=== PATIENT | male | born 1975 | race Caucasian/White ===

== ENCOUNTER → 2020-12-25 14:26 | Outpatient (REF) | payer OTHER, SELFPAY ==
--- NOTE | 2020-12-25 15:00 | CA_ITS ---
Transthoracic Echocardiogram Patient (Last, First, Middle): Dima Monsalve, Gender: Male Date of : 1975 Age: 45 Procedure Date: 12/25/2020 Procedure Type: Transthoracic Echocardiogram Location: OP Height: 180.34 cm Weight: 102.06 kg BSA: 2.22 m2 Heart Rate: bpm BP: 186 / 97 mmHg Die Cast Engineer: STANFORD Delaney MD: Saúl Hoff MD Warning Coordination Meteorologist: Richie Jameson MD Symptoms: I20.8 STABLE ANGINA PECTORIS I25.10 ASCD Z95.5 STENTED COR A Study Quality: Good ECG Rhythm: Sinus Conclusions: - 1. Normal LV systolic function with grade 1 diastolic dysfunction with basal inferior and inferoseptal wall motion abnormality 2. Normal cardiac valvular Doppler 3. No pericardial effusion Findings Left Ventricle Normal left ventricular size, thickness, and systolic function. The visually estimated ejection fraction is between 60-65%. Spectral Doppler is indicative of an impaired relaxation filling pattern. E/E prime ratio is <8, consistent with normal filling pressures. Evidence suggests grade I (mild) diastolic dysfunction. Wall Motion Rest Echo Findings The basal inferoseptal segment is hypokinetic. The basal inferior segment is akinetic. All other scored wall segments showed normal motion. Right Ventricle Normal right ventricular cavity size and systolic function. Atria Both atria are normal in size. There is lipomatous hypertrophy of the interatrial septum. There is no evidence of interatrial shunt. Aortic Valve Normal aortic valve structure and function. There is no aortic valve stenosis. There is no aortic valve regurgitation. Mitral Valve Normal mitral valve structure and function. There is no mitral valve regurgitation. There is no mitral valve stenosis. Pulmonic Valve The pulmonic valve was not well visualized. Tricuspid Valve Normal tricuspid valve structure. There is trace tricuspid valve regurgitation. The right ventricular systolic pressure is not calculated. Great Vessels All visible segments of the aorta are normal in size. The pulmonary artery was not well visualized. Venous The inferior vena cava is normal in size and collapses greater than 50% with inspiration. Pericardium/Pleural There is no evidence of pericardial effusion. Prior Study Comparison No prior study available for comparison. Measurements M-Mode Liner Measurements Normals - Women/Men AOV Cusps: 2.30 1.5-2.6 cm/m2 2D Linear Measurements IVSd: 0.93 0.6-0.9/0.6-1.0 cm LVIDd: 5.05 3.9-5.3/4.2-5.9 cm LVIDd Index: 2.27 2.4-3.2/2.2-3.1 cm/m2 LVIDs: 4.06 2.0-3.6 cm LVPWd: 1.10 0.7-1.1 cm Ao Root: 3.30 2.1-3.5 cm LA Diam: 4.10 2.7-3.8/3.0-4.0 cm LAIDs Index: 1.85 1.5-2.3 cm/m2 LV Mass: 234.84 67-162/88-224 g LV Mass Index: 105.78 43-95/49-115 g/m2 LVOT Diam: 2.20 3.0+(-)1.3 cm 2D Systolic Function EF 4C: 60.70 >55% EF 2C: 66.20 >55% EF BiP: 63.70 >55% Mitral Valve MV Pk E: 0.67 MV PK A: 0.78 MV Decel Time: 369.00 E/A: 0.90 E'Lateral: 13.20 E'Medial: 7.62 E/E' Med: 8.80 E/E' Lat: 5.10 PHT: 108.00 MVA PHT: 2.04 Decel [place]: 1.82 Aortic Valve AoV Pk Franklyn: 1.57 AoV Pk Grad: 10.00 LVOT LVOT Pk Franklyn: 1.02 LVOT Mn Franklyn: 0.76 LVOT VTI: 0.22 LVOT Pk Grad: 4.00 LVOT Mn Grad: 3.00 LVOT Diam: 2.20 LVOT Area: 3.80 Diastolic Function MV Pk E: 0.67 MV Pk A: 0.78 E/A: 0.90 E'Medial: 7.62 E/E' Med: 8.80 E' Laterial: 13.20 E/E' Lat: 5.10 Tricuspid Valve RA Press: 3.00 Great Vessels Aorta Ao Root-2D: 3.30 2.0-3.7 cm Ao Asc: 3.10 2.1-3.4 cm Ao Arch: 2.90 Pulmonary Valve PV Pk Franklyn: 1.10 Peak PV Grad: 5.00 Updated in Other Vendor System with Status of Final Richie Jameson MD electronically signed on 12/26/2020 4:57:07 PM with status of Final
== END ==
LOC: HO.CARD 14:26
PROVIDERS: Visit Provider Internal Medicine
DX: I25.119 Atherosclerotic heart disease of native coronary artery with unspecified angina pectoris (principal); Z95.5 Presence of coronary angioplasty implant and graft
CPT/HCPCS: 93306

== ENCOUNTER → 2021-01-23 14:49 | Outpatient (BNVA) | payer OTHER, SELFPAY | PROVIDERS: PCP Internal Medicine; Visit Provider Internal Medicine | DX: R07.2 Precordial pain (principal); I25.10 Atherosclerotic heart disease of native coronary artery without angina pectoris; E11.8 Type 2 diabetes mellitus with unspecified complications; I10 Essential (primary) hypertension; E78.5 Hyperlipidemia, unspecified; Z95.5 Presence of coronary angioplasty implant and graft | CPT/HCPCS: 93005; 99212 ==

== ENCOUNTER → 2021-01-24 07:38 | Outpatient (REF) | payer OTHER, SELFPAY ==
--- NOTE | ~2021-01-24 | NM_ITS ---
Lexiscan Myocardial perfusion study Indication: Exertional angina, assess for ischemia Technique: The patient was brought in for a Lexiscan perfusion study on 01/24/2021 and was injected 0.4 mg of Lexiscan intravenously. Within a minute of this injection 30 mCi of sestamibi was given intravenously. Images were obtained using the SPECT gamma camera interlaced with the gating device. Images were obtained in supine position. Resting perfusion study was performed on 01/25/2021. Patient was administered 30 mCi of sestamibi intravenously at rest. Images were then obtained in supine position. Total DLP 59mGy-cm. Images were processed with the software and compared side to side in short axis, horizontal long axis and vertical long axis views. Findings: Raw acquisition was reviewed. The stress perfusion study showed diminished tracer uptake along the inferior wall. With CT attenuation correction, there seems to be improvement, hence suggesting diaphragmatic attenuation artifact. The gated study shows normal LV systolic function with calculated LVEF of 61%. LV cavity is normal in size. The gated study shows normal wall thickening and contraction of segments. Resting study shows diminished tracer uptake along the inferior wall that improves with CT attenuation correction but there is also some bowel uptake superimposed on it. Gating at rest reveals normal wall motion with ejection fraction at 64%. The findings are consistent with inferior wall defect with some fixed and reversible components but improving with CT attenuation correction. NM/NM cardiolite stress test Impression: 1. Myocardial perfusion imaging study shows inferior wall defect that has reversible and fixed components, but improving significantly with CT attenuation correction. Appears to be from diaphragmatic attenuation but based on clinical history/coronary anatomy, may consider further workup. 2. Gated LVEF is 61% during stress and 64% during rest. 3. Transient ischemic dilatation not present. Component of the test reported separately.
--- NOTE | 2021-01-24 07:49 | CA_ITS ---
Acquisition Time: 2021-01-24 07:52:54 Total Exercise Time: 00:02:00 Test Indications: CP Medications: SEE CHART Protocol: LEXISCAN Max HR: 084 BPM 48% of Pred: 172 BPM Max BP: 142/092 mmHG Max Work Load: 1.6 METS Pharmacological stress test using Lexiscan while walking on treadmill for 2 min. C/o chest pressure 3/10 2 min 30 sec into recovery. SX reversed with Aminophyline 75 mg IV. EKG with no arrhythmias, non-dfiagnostic for ischemia. Nuclear images to follow. Normotensive response to test. Test reviewed with Dr. Hoff. Referred By: Saúl Hoff Overread By: Lynne Clark NP
== END ==
LOC: HO.CARD 07:38
PROVIDERS: PCP Internal Medicine; Visit Provider Internal Medicine
DX: R07.2 Precordial pain (principal); I25.10 Atherosclerotic heart disease of native coronary artery without angina pectoris; Z95.5 Presence of coronary angioplasty implant and graft
CPT/HCPCS: 78452; 93016; 93017; 93018; A9500; J0280; J2785

== ENCOUNTER 2021-01-31 16:02 | Outpatient (REF) | payer OTHER, SELFPAY ==
[2021-01-31 16:28] LABS: Hematocrit 43.2 % (42-52); Hemoglobin 15.1 g/dl (14.0-18.0); Mean Corpuscular Hemoglobin 32.7 pg (27.0-33.0); Mean Corpuscular Volume 93.5 fL (80-98); Mean Platelet Volume 9.9 fL (9.4-12.4); Platelet Count 249 X10*3/uL (160-400); Red Blood Count 4.62 X10*6/uL (4.60-5.80); Red Cell Distribution Width 12.9 % (11.0-16.0); White Blood Count 8.9 X10*3/uL (4.8-10.8)
[2021-01-31 16:52] LABS: INTERNATIONAL NORM RATIO 0.9 (0.9-1.1); Prothrombin Time 10.8 SEC (10.8-13.0)
[2021-01-31 16:53] LABS: Anion Gap 14 (12-20); Blood Urea Nitrogen 18 mg/dL (9-16); Calcium 10.4 mg/dL (8.4-10.2); Carbon Dioxide 27 mmol/L (22-29); Chloride 104 mmol/L (96-108); Estimated Glomerular Filt Rate > 60; Glucose Random 177 mg/dL (60-115); Potassium 4.3 mmol/L (3.3-5.1); Sodium 141 mmol/L (135-145)
== END 2021-01-31 16:03 | disposition home or self-care (01) ==
LOC: HO.LAB 16:02
PROVIDERS: PCP Internal Medicine; Visit Provider Internal Medicine
DX: R07.2 Precordial pain (principal)
CPT/HCPCS: 36415; 80048; 85027; 85610

== ENCOUNTER → 2021-02-13 11:55 | Outpatient (BNVA) | payer OTHER, SELFPAY | PROVIDERS: PCP Internal Medicine; Referring Provider Internal Medicine; Visit Provider Internal Medicine | DX: I25.10 Atherosclerotic heart disease of native coronary artery without angina pectoris (principal); I10 Essential (primary) hypertension; E11.8 Type 2 diabetes mellitus with unspecified complications; E78.5 Hyperlipidemia, unspecified; Z95.5 Presence of coronary angioplasty implant and graft | CPT/HCPCS: 99212 ==

== ENCOUNTER 2021-03-27 13:43 | Outpatient (REF) | payer OTHER, SELFPAY ==
--- NOTE | ~2021-03-27 | XR_ITS ---
EXAMINATION: XR knee RT 2V, XR knee LT 2V, XR knee standing BI CLINICAL INFORMATION: Bilateral knee pain. COMPARISON: None. TECHNIQUE: Standing AP views of both knees were obtained with lateral and sunrise views of each knee. FINDINGS: RIGHT KNEE: No bony abnormality is demonstrated. Joint spaces are maintained. Patellar alignment is normal. No joint effusion is evident. LEFT KNEE: Mild degenerative changes are present in the medial compartment with mild joint space narrowing and small marginal osteophytosis. Several small calcific densities overlie the posterior joint space concerning for intra-articular loose bodies. Donor site is not evident. Mild degenerative changes are present in the patellofemoral compartment. Patellar alignment is normal. XR/XR knee RT 2V IMPRESSION: 1. Unremarkable right knee. 2. Mild degenerative changes of the left knee in the medial and patellofemoral compartments. Calcific densities overlying the posterior joint space of the left knee concerning for intra-articular loose bodies. This could be further assessed with MR.
--- NOTE | ~2021-03-27 | XR_ITS ---
EXAMINATION: XR knee RT 2V, XR knee LT 2V, XR knee standing BI CLINICAL INFORMATION: Bilateral knee pain. COMPARISON: None. TECHNIQUE: Standing AP views of both knees were obtained with lateral and sunrise views of each knee. FINDINGS: RIGHT KNEE: No bony abnormality is demonstrated. Joint spaces are maintained. Patellar alignment is normal. No joint effusion is evident. LEFT KNEE: Mild degenerative changes are present in the medial compartment with mild joint space narrowing and small marginal osteophytosis. Several small calcific densities overlie the posterior joint space concerning for intra-articular loose bodies. Donor site is not evident. Mild degenerative changes are present in the patellofemoral compartment. Patellar alignment is normal. XR/XR knee standing BI IMPRESSION: 1. Unremarkable right knee. 2. Mild degenerative changes of the left knee in the medial and patellofemoral compartments. Calcific densities overlying the posterior joint space of the left knee concerning for intra-articular loose bodies. This could be further assessed with MR.
--- NOTE | ~2021-03-27 | XR_ITS ---
EXAMINATION: XR knee RT 2V, XR knee LT 2V, XR knee standing BI CLINICAL INFORMATION: Bilateral knee pain. COMPARISON: None. TECHNIQUE: Standing AP views of both knees were obtained with lateral and sunrise views of each knee. FINDINGS: RIGHT KNEE: No bony abnormality is demonstrated. Joint spaces are maintained. Patellar alignment is normal. No joint effusion is evident. LEFT KNEE: Mild degenerative changes are present in the medial compartment with mild joint space narrowing and small marginal osteophytosis. Several small calcific densities overlie the posterior joint space concerning for intra-articular loose bodies. Donor site is not evident. Mild degenerative changes are present in the patellofemoral compartment. Patellar alignment is normal. XR/XR knee LT 2V IMPRESSION: 1. Unremarkable right knee. 2. Mild degenerative changes of the left knee in the medial and patellofemoral compartments. Calcific densities overlying the posterior joint space of the left knee concerning for intra-articular loose bodies. This could be further assessed with MR.
== END 2021-03-27 13:44 | disposition home or self-care (01) ==
LOC: HO.XRAY 13:43
PROVIDERS: PCP Internal Medicine; Visit Provider Orthopaedic Surgery
DX: M25.561 Pain in right knee (principal); M25.562 Pain in left knee
CPT/HCPCS: 20610; 73560; 73565; 99202; J1040

== ENCOUNTER → 2021-07-16 14:29 | Outpatient (BNVA) | payer OTHER, SELFPAY | PROVIDERS: PCP Internal Medicine; Referring Provider Internal Medicine; Visit Provider Internal Medicine | DX: I25.10 Atherosclerotic heart disease of native coronary artery without angina pectoris (principal); E11.9 Type 2 diabetes mellitus without complications; I10 Essential (primary) hypertension; E78.5 Hyperlipidemia, unspecified; E78.00 Pure hypercholesterolemia, unspecified; E66.9 Obesity, unspecified; Z68.31 Body mass index [BMI] 31.0-31.9, adult; Z87.891 Personal history of nicotine dependence; Z95.5 Presence of coronary angioplasty implant and graft; Z98.890 Other specified postprocedural states; Z79.84 Long term (current) use of oral hypoglycemic drugs; Z79.899 Other long term (current) drug therapy | CPT/HCPCS: 99212 ==

== ENCOUNTER 2021-10-14 10:54 | Outpatient (REF) | payer OTHER, SELFPAY ==
[2021-10-14 11:09] LABS: MANUAL DIFF FLAG NO
[2021-10-14 11:58] LABS: Appearance Urine CLEAR; Color Urine YELLOW; Glucose Urine UA NEG (NEG); Leukocyte Esterase Urine NEG (NEG); Nitrite Urine NEG (NEG); PH 5.5 (5.0-8.0); Specific Gravity - Urine >= 1.030 (1.005-1.025); Urine Blood NEG (NEG); Urine Ketones NEG (NEG); Urine Protein NEG (NEG-TRACE)
[2021-10-14 11:58] LABS: Basophils Percent Auto 0.3 % (0-2); Eosinophils Absolute Auto 0.1 X10*3/uL (0.0-0.4); Eosinophils Percent Auto 1.6 % (0-4); Hematocrit 44.9 % (42.0-52.0); Imm Gran Abs Auto 0.02 X10*3/uL (0.00-0.03); Imm Gran Pct Auto 0.3 % (0.0-0.4); Lymphocytes Absolute Auto 1.5 X10*3/uL (1.2-4.9); Lymphocytes Percent Auto 24.4 % (20-40); Mean Corpuscular HGB Conc 33.4 g/dl (31.0-36.0); Mean Corpuscular Volume 95.7 fL (80.0-98.0); Mean Platelet Volume 10.3 fL (9.4-12.4); Monocytes Absolute Auto 0.7 X10*3/uL (0.1-1.2); Monocytes Percent Auto 12.1 % (2-11); Neutrophils Absolute Auto 3.7 x10*3/uL (2.0-8.3); Neutrophils Percent Auto 61.3 % (45-73); Platelet Count 208 X10*3/uL (160-400); Red Blood Count 4.69 X10*6/uL (4.60-5.80); Red Cell Distribution Width 12.7 % (11.0-16.0); White Blood Count 6.1 X10*3/uL (4.8-10.8)
[2021-10-14 12:05] LABS: Estimated Average Glucose 194 mg/dL; Hemoglobin A1c % 8.4 %
[2021-10-14 12:17] LABS: Alanine Aminotransferase 30 U/L (0-40); Albumin Level 4.4 g/dL (3.5-5.0); Alkaline Phosphatase 85 U/L (39-117); Anion Gap 11 (12-20); Aspartate Amino Transferase 23 U/L (5-37); Bilirubin Total 0.6 mg/dL (0.0-1.0); Blood Urea Nitrogen 19 mg/dL (9-16); Calcium 10.2 mg/dL (8.4-10.2); Carbon Dioxide 26 mmol/L (22-29); Chloride 109 mmol/L (96-108); Cholesterol 159 mg/dL; Estimated Glomerular Filt Rate > 60; Glucose Fasting 148 mg/dL (60-99); HDL Cholesterol 29 mg/dL; Potassium 5.1 mmol/L (3.3-5.1); Sodium 141 mmol/L (135-145); Total Protein 7.3 g/dL (6.5-8.0); Triglycerides 401 mg/dL
[2021-10-14 12:20] LABS: Creatinine Urine 134.76 mg/dL; Microalbum/Creatinine Ratio Ur 34.1 ug/mg cr
[2021-10-14 12:40] LABS: TSH reflex Free T4 1.05 uIU/mL (0.32-4.0)
== END 2021-10-14 10:55 | disposition home or self-care (01) ==
LOC: HO.LAB 10:54
PROVIDERS: PCP Internal Medicine; Visit Provider Internal Medicine
DX: E11.8 Type 2 diabetes mellitus with unspecified complications (principal); E78.00 Pure hypercholesterolemia, unspecified; I10 Essential (primary) hypertension; I25.10 Atherosclerotic heart disease of native coronary artery without angina pectoris; E66.9 Obesity, unspecified
CPT/HCPCS: 36415; 80053; 80061; 81003; 82043; 83036; 84443; 85025

== ENCOUNTER → 2021-11-26 11:16 | Outpatient (BNVA) | payer OTHER, SELFPAY | PROVIDERS: PCP Internal Medicine; Referring Provider Internal Medicine; Visit Provider Internal Medicine | DX: I25.10 Atherosclerotic heart disease of native coronary artery without angina pectoris (principal); I10 Essential (primary) hypertension; E78.5 Hyperlipidemia, unspecified; E11.8 Type 2 diabetes mellitus with unspecified complications; Z79.899 Other long term (current) drug therapy; Z95.5 Presence of coronary angioplasty implant and graft | CPT/HCPCS: 99212 ==

== ENCOUNTER 2023-05-06 09:07 | Outpatient (AMB) | payer OTHER, SELFPAY ==
--- NOTE | 2023-05-06 09:11 | A.OFFVIS_ITS ---
Intake Vital Signs 05/06/23 09:12 Height 5 ft 11 in Weight 220 lb 7.396 oz BMI 30.7 BP 110/74 Blood Pressure Location Lt brachial Position Sitting Pulse 60 Intake Visit Reasons: overdue follow up Intake Note: overdue follow up Program Facilitator Required: No Accompanied by: Self / Same As Patient Allergies No Known Allergies [No Known Allergies*] Allergy (Verified 05/06/23 09:14) Medication List - Last Reconciled 05/06/23 by Saúl Hoff MD aspirin 81 mg PO DAILY atorvastatin 80 mg PO DAILY clonidine HCl 0.1 mg PO BID PRN clopidogrel 75 mg PO DAILY isosorbide mononitrate ER 120 mg PO QAM lisinopril 40 mg PO DAILY metformin 1,000 mg PO BID metoprolol tartrate 100 mg PO BID nitroglycerin 0.4 mg sublingual Q5M PRN 30 days MDD max 3 doses per episode sitagliptin phosphate (Januvia) 100 mg PO DAILY 30 days tizanidine 4 mg PO TID PRN HPI HPI Comments History of Present Illness Details Dima is here for follow-up regarding coronary artery disease. Various risk factors including diabetes, hypertension, dyslipidemia. We have not seen him in more than a year. However, he states that he is actually doing pretty good. His long-acting nitrates are working fine and and he has essentially been free of angina. Otherwise, getting along okay. [facility] Medical History Atherosclerotic cardiovascular disease Bilateral primary osteoarthritis of knee Essential hypertension Obesity (BMI 30-39.9) Other and unspecified hyperlipidemia Pure hypercholesterolemia Type 2 diabetes mellitus with unspecified complications Surgical History History of cardiac catheterization (~02/15/20) History of heart artery stent Stented coronary artery Family History Father No problems noted. Mother No problems noted. Social History Housing: Apartment Alcohol intake: former Year quit: 2020 Patient Tobacco Use Status: Former Tobacco user Quit Date: 2020 Tobacco use type: Cigarette Years Smoked: 30+/- Second Hand Smoke Exposure: Yes Current occupational status: employed Current occupation: [employer] Work[employer] Cognitive needs: No Hearing needs: No Vision needs: No Review of Systems Const Denies weakness ENT Denies dizziness Card Denies chest pain, Denies chest pain with activity, Denies syncope, Denies rapid heart rate, Denies pedal edema, Denies edema, Denies leg edema, Denies lightheadedness, Denies palpitations, Denies dyspnea, Denies dyspnea on exertion and Denies orthopnea Resp Denies cough, Denies dyspnea and Denies dyspnea on exertion GI Denies hematochezia and Denies change in stool character Musc Denies abnormal gait, Denies muscle cramps, Denies muscle weakness, Denies numbness, Denies radiating pain into limb and Denies tingling Neuro Denies abnormal gait, Denies dizziness, Denies syncope, Denies numbness, Denies tingling and Denies weakness Endo Denies palpitations Physical Exam Vital Signs: Last Vital Signs Pulse 60 05/06/23 09:12 BP 110/74 05/06/23 09:12 BMI result Body Mass Index 30.7 Const General: comfortable and no acute distress Orientation/consciousness: patient oriented x3 HEENT Other: Unremarkable Head: Yes normal to inspection Neck Neck: Yes normal visual inspection Chest Chest palpation & inspection: normal inspection of the chest Resp Auscultation: clear to auscultation bilaterally Cardio Palpation: normal PMI Heart sounds: S1 normal heart sound present, S2 normal heart sound present, no gallops, Murmur heart sound present systolic I/ and at the right sternal border and no rubs GI Palpation (GI): Soft to palpation Back/Spine/Pelvis Other: unremarkable Skin General skin exam: no rashes or lesions noted Neuro General: patient oriented x3 Extrem General: Yes normal to inspection Psych Mental Status: mental status grossly normal Assessment & Plan Assessment & Plan (1) Atherosclerotic cardiovascular disease: Code(s): I25.10 - Atherosclerotic heart disease of [place] coronary artery without angina pectoris (2) Stented coronary artery: Code(s): Z95.5 - Presence of coronary angioplasty implant and graft (3) Type 2 diabetes mellitus with unspecified complications: Code(s): E11.8 - Type 2 diabetes mellitus with unspecified complications (4) Essential hypertension: Code(s): I10 - Essential (primary) hypertension (5) Other and unspecified hyperlipidemia: Code(s): E78.5 - Hyperlipidemia, unspecified Plan Coronary anatomy- multiple coronary interventions at different times starting in 2009. Last cardiac catheterization was in 2020. He had moderate InStent restenosis in the OM3 and ostial 70% OM2; mid to distal LAD-50% but IFR assessment for all of these were not significant. Overall, seems to be free of angina. Continue high dose of beta-blockers and he is also on high dose of long-acting nitrates. He has had headaches in the past but nothing recently. It seems that we did start him on Ranexa last time but does not seem to be taking it as he states he is already feeling fine without it. Otherwise, okay to keep him on dual antiplatelet therapy long-term considering the extent of CAD. Continue high-dose statins. Last LDL was 70 mg/dL. Triglycerides were also high. There is already a request for repeat lipids. Advised to do that. With regard to diabetes, he is on metformin, Januvia. Last available hemoglobin A1c is quite high at 9.9%. That needs to be significantly lower. Otherwise, he will call us with ongoing concerns. Coding Level of Care Code Est Pt Level 4 (71987) Diagnoses Atherosclerotic cardiovascular disease I25.10 Stented coronary artery Z95.5 Type 2 diabetes mellitus with unspecified complications E11.8 Essential hypertension I10 Other and unspecified hyperlipidemia E78.5
[2023-05-06 09:12] VITALS: BP 110/74; PULSE 60; BMI 30.7
== END 2023-05-06 09:28 | disposition home or self-care (01) ==
PROVIDERS: PCP Internal Medicine; Visit Provider Internal Medicine
DX: I25.10 Atherosclerotic heart disease of native coronary artery without angina pectoris (principal); Z95.5 Presence of coronary angioplasty implant and graft; E11.8 Type 2 diabetes mellitus with unspecified complications; I10 Essential (primary) hypertension; E78.5 Hyperlipidemia, unspecified
CPT/HCPCS: 99214

== ENCOUNTER → 2023-05-06 09:07 | Outpatient (BNVA) | payer OTHER, SELFPAY | PROVIDERS: PCP Internal Medicine; Visit Provider Internal Medicine | DX: I25.10 Atherosclerotic heart disease of native coronary artery without angina pectoris (principal); I10 Essential (primary) hypertension; E11.8 Type 2 diabetes mellitus with unspecified complications; E78.5 Hyperlipidemia, unspecified; Z95.5 Presence of coronary angioplasty implant and graft | CPT/HCPCS: 99212 ==

== ENCOUNTER 2023-05-13 15:43 | Outpatient (AMB) | payer OTHER, SELFPAY ==
--- NOTE | 2023-05-13 15:46 | A.OFFPC_ITS ---
Vital Signs 05/13/23 15:47 Height 5 ft 11 in Weight 221 lb 4 oz BMI 30.9 BP 100/60 Blood Pressure Location Lt brachial Position Sitting Pulse 76 Pulse Source Pulse Oximeter Pulse Oximetry (%) 93 Oxygen Delivery Method Room Air Intake Visit Reasons: Physical exam Intake Note: Patient is here today for a physical. 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 Repair Person Required: No Toxicology Teacher: Not Required per policy Accompanied by: Self / Same As Patient Allergies No Known Allergies [No Known Allergies*] Allergy (Verified 05/13/23 16:01) Medication List - Last Reconciled 05/13/23 by Alin Sandy MD aspirin 81 mg PO DAILY atorvastatin 80 mg PO DAILY clonidine HCl 0.1 mg PO BID PRN clopidogrel 75 mg PO DAILY isosorbide mononitrate ER 120 mg PO QAM lisinopril 40 mg PO DAILY metformin 1,000 mg PO BID metoprolol tartrate 100 mg PO BID nitroglycerin 0.4 mg sublingual Q5M PRN 30 days MDD max 3 doses per episode sitagliptin phosphate (Januvia) 100 mg PO DAILY 30 days tizanidine 4 mg PO TID PRN Tobacco use date assessed: 05/13/23 Dental Screening Dental Screen Date: 05/13/23 Did you have a dental visit in the last 12 months?: No Did you have a dental problem in the last 6 months where you did not have access to dental care?: No Was dental information given to patient?: No HPI Physical exam HPI Details Patient comes in today for his annual physical examination - was last seen for follow up almost a year ago on 06/10/2022 States that he currently feels okay He denies any headaches or dizziness Denies any chest pains, no SOB No nausea/vomiting, no abdominal pain but states that he has been feeling bloated a lot lately and his stomach sometimes feel uncomfortable, especially in the morning Notes that he has been burping a lot and that gas that he gets up is often foul- smelling No change in bowel habits noted - is not constipated and states that he moves his bowels regularly with no issues Denies any acute urinary symptoms Needs his Nitroglycerin tablets Rx refilled; states that he rarely Has no follow up labs done recently; labs were last done in October 2021 States that he has never had a screening colonoscopy done in the past and prefers to have Cologuard testing done at this time if appropriate [facility] Medical History (Updated 05/13/23 @ 18:24 by Alin Sandy MD) Atherosclerotic cardiovascular disease Bilateral primary osteoarthritis of knee Essential hypertension Obesity (BMI 30-39.9) Other and unspecified hyperlipidemia Pure hypercholesterolemia Type 2 diabetes mellitus with unspecified complications Surgical History (Updated 05/13/23 @ 18:09 by Alin Sandy MD) History of cardiac catheterization (~02/15/20) History of heart artery stent History of percutaneous coronary intervention Stented coronary artery Family History Father No problems noted. Mother No problems noted. 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 1. Little interest or pleasure in doing things: not at all 2. Feeling down, depressed, or hopeless: not at all 3. Trouble falling or staying asleep, or sleeping too much: not at all 4. Feeling tired or having little energy: not at all 5. Poor appetite or overeating: not at all 6. Feeling bad about yourself - or that you are a failure or have let yourself or your family down: not at all 7. Trouble concentrating on things, such as reading the newspaper or watching television: not at all 8. Moving or speaking so slowly that other people could have noticed. Or the opposite - being so fidgety or restless that you have been moving around a lot more than usual: not at all 9. Thoughts that you would be better off or of hurting yourself in some way: not at all Total score: 0 Depression Screening Interpretation: Negative 66800 - PHQ-9 Billing: Yes Source: Developed by Drs. Hafsa Kong, Mau Barlow and colleagues, with an educational nate from [employer]. Thrive Questionnaire Date Thrive assessed: 05/13/23 I am a: Patient What is your living situation today?: I have a steady place to live Within the past 12 months, did the food you bought not last and you didn't have the money to get more?: Never true Within the past 12 months, did you worry whether your food would run out before you got money to buy more?: Never true Do you have trouble paying for medicines?: No Do you have trouble getting transportation to medical appointments?: No Do you have trouble paying your heating and electricity bill?: No Do you have trouble taking care of your child, family member or friend?: No Do you have trouble with day-to-day activities such as bathing, preparing meals, shopping, managing finances, etc.?: No Are you currently unemployed and looking for a job?: No Are you interested in more education?: No Currently or been in a relationship where the following occur: no concerns reported AUDIT C Alcohol Use Questionnaire (AUDIT-C) 1. How often do you have a drink containing alcohol?: Never Total Score: 0 Score Reviewed/Action Taken: Yes MARTINA-7 AMB Questionnaire MARTINA-7 Date MARTINA - 7 assessed: 05/13/23 Feeling nervous, anxious, or on edge: 0 = Not at all Not being able to stop or control worryin = Not at all Worrying too much about different things: 0 = Not at all Trouble relaxin = Not at all Being so restless that it is hard to sit still: 0 = Not at all Becoming easily annoyed or irritable: 0 = Not at all Feeling afraid as if something awful might happen: 0 = Not at all Total MARTINA-7 score (0-4 normal; 5-9 mild; 10-14 moderate; 15-21 severe): 0 Source: Developed by Drs. Wade Perla, Hafsa Oquendo, Mau Barlow and colleagues, with an educational nate from [employer]. Review of Systems Const Denies chills, Denies fatigue, Denies fever(s), Denies headache(s), Denies malaise and Denies weakness Eyes Denies blurry vision, Denies change in vision, Denies irritation and Denies itchy eyes ENT Denies dysphagia, Denies dizziness, Denies otalgia, Denies headache(s), Denies nasal congestion, Denies neck pain, Denies odynophagia and Denies sore throat Card Denies chest pain, Denies rapid heart rate, Denies irregular heart rhythm, Denies palpitations and Denies dyspnea Resp Denies chest congestion, Denies cough, Denies dyspnea and Denies wheezing GI Denies abdominal pain, Reports belching (states that the gas he belches up is often foul-smelling), Reports bloating (on and off lately), Denies constipation, Denies dysphagia, Reports dyspepsia (occasionally), Denies heartburn, Denies diarrhea, Denies nausea, Denies odynophagia and Denies vomiting Denies hematuria, Denies difficulty urinating, Denies dysuria, Denies urinary frequency and Denies urinary urgency Musc Denies back pain, Denies arthralgias, Denies joint swelling, Denies muscle weakness and Denies neck pain Skin/Breast Denies change in pigmentation, Denies lesions, Denies rash and Denies unusual bruising Neuro Denies dizziness, Denies headache(s), Denies paresthesias and Denies weakness Endo Denies fatigue and Denies palpitations Aller/Immun Denies itchy eyes and Denies wheezing Physical exam (Primary Care) Vital Signs: Last Vital Signs Pulse 76 05/13/23 15:47 BP 100/60 05/13/23 15:47 Pulse Ox 93 05/13/23 15:47 Oxygen Delivery Method Room Air 05/13/23 15:47 BMI result Body Mass Index 30.9 Tobacco/Smoking Status: Tobacco use Status Tobacco use date assessed 05/13/23 05/13/23 15:54 Patient Tobacco Use Status Former Tobacco user 05/13/23 15:54 Tobacco use type Cigarette 05/13/23 15:54 e-Cigarette/Vaping Use Never Used 05/13/23 15:54 PHQ-9: PHQ-9 Score PHQ-9: Total score 0 05/13/23 16:06 Depression Screening Interpretation: Negative Thrive Assessment: Date of Thrive Assessment Date Thrive assessed 05/13/23 05/13/23 15:54 Currently or been in a relationship where the following occur: no concerns reported Const General: no acute distress, alert and awake Orientation/consciousness: patient oriented x3 HENMT Head: Yes normocephalic and Yes atraumatic Ears: external ears normal, TM's normal bilaterally and EAC's normal General nose exam: No nasal discharge present Face and sinus: Yes normal facial exam and Yes sinuses nontender Teeth and gingiva: dentition normal Throat: Yes posterior oropharynx normal and Yes tonsils normal (no TP congestion) Eyes Eyelids: Yes eyelids normal Conjunctivae: conjunctivae normal Pupils: Equal, round and reactive pupils present EOM: EOMs intact bilaterally Neck Neck: Yes no lymphadenopathy and Yes supple Thyroid: Thyroid normal Resp Auscultation: clear to auscultation bilaterally, no rales and no wheezes Cardio Rate: regular rate Rhythm: regular rhythm Heart sounds: no murmurs GI Palpation (GI): Soft to palpation, nontender and No hepatosplenomegaly present Auscultation: normal bowel sounds General: Yes no CVA tenderness Back/Spine/Pelvis Back: no CVA tenderness Thoracic/Lumbar Spine: thoracic and lumbar spine normal to inspection Skin Lesions: no lesions Rashes: no rashes Neuro General: patient oriented x3, moves all extremities, no focal motor deficits and CN's II-XI intact bilaterally Cranial nerves: Yes Equal, round and reactive pupils present Cognition (Neuro): normal cognition Gait exam (Neuro): Normal gait present Extrem General: Yes no clubbing, cyanosis or edema Results AMB Hemoglobin A1c AMB Hemoglobin A1c 7.8 % Last Edit by LUPIS Kearney on 05/13/23 16:01 Results Reviewed Results Reviewed: Laboratory Last Values Hgb A1c (Clinic) 7.8 % (4.0-6.0) H 05/13/23 15:46 Assessment and Plan Assessment & Plan (1) Annual physical exam: Code(s): Z00.00 - Encounter for general adult medical examination without abnormal findings Plan: Check labs States that he has never had a screening colonoscopy done and prefers NOT to get it done at this time but is agreeable to a Cologuard if his insurance will cover the test States that he has no increased risk and no family history of colon cancer (2) Atherosclerotic cardiovascular disease: Comment: S/P PCI / stenting of LCx on 08/19/2017 and again on 02/15/2020 Code(s): I25.10 - Atherosclerotic heart disease of [place] coronary artery without angina pectoris Plan: Repeat coronary angiography done in 2020 showed no hemodynamically significant lesions in the coronaries Recommended lifelong low dose Aspirin therapy, Clopidogrel (x 12 months post-PCI but cardiology recently decided to keep him on Plavix considering the extent of his CAD), smoking cessation, aggressive risk factor reduction and continuing medical management Continue Metoprolol 100 mg BID, Isosorbide Mononitrate ER 120 mg QD, Ranolazine ER 500 mg BID and NTG 0.4 mg SL PRN for chest pains although patient self- discontinued his Ranolazine at some point last year - states that he has not had any problems / symptoms since coming off Ranexa Follow up with cardiology as scheduled (3) Type 2 diabetes mellitus with unspecified complications: Code(s): E11.8 - Type 2 diabetes mellitus with unspecified complications Plan: In-office HgbA1c done today is at 7.8% (was at 9.9% last year) - goal is at least < 7.0% Reinforced diabetic diet Continue Metformin 1000 mg BID and Januvia 100 mg QD He was referred for nutrition counseling and dietary teaching last year but for reasons unclear (possibly insurance issues) he was never scheduled nor seen (4) Pure hypercholesterolemia: Code(s): E78.00 - Pure hypercholesterolemia, unspecified Plan: Will send patient for some follow up labs and to recheck his fasting lipids ARPIT Reinforced low cholesterol diet - goal is LDL cholesterol of 70 mg/dl or less Continue Atorvastatin 80 mg QD (5) Essential hypertension: Code(s): I10 - Essential (primary) hypertension Plan: Reinforced low sodium diet - goal is systolic BP of 120 mm or less given his current comorbidities Continue Lisinopril 40 mg QD and Metoprolol 100 mg BID (6) Dyspepsia: Code(s): R10.13 - Epigastric pain Plan: Discussed dietary restrictions and that his symptoms are not that different from one who has heartburns/stomach gas Will start him on a trial of Pantoprazole 40 mg QD for now - is advised to take this daily for the next few months Is instructed to call if he still does not experience any significant improvement of his GI symptoms with Rx over the next couple of months - may need to send him for further work ups then (7) Bilateral primary osteoarthritis of knee: Code(s): M17.0 - Bilateral primary osteoarthritis of knee Plan: Follow up with orthopedics as scheduled (8) Obesity (BMI 30-39.9): Code(s): E66.9 - Obesity, unspecified Plan: Reinforced diet/exercise as tolerated/lose weight (9) Colon cancer screening: Code(s): Z12.11 - Encounter for screening for malignant neoplasm of colon Plan: Patient has never had a screening colonoscopy done in the past (by choice) and still does not want to get one done at this time but is agreeable to getting Cologuard testing instead Cologuard ordered Plan Follow up in 4 months Orders: Orders Complete Blood Count Auto Diff Today I10 - Essential (primary) hypertension, Z00.00 - Encounter for general adult medical examination without abnormal findings Comprehensive [place]. Panel Fast Today E78.00 - Pure hypercholesterolemia, unspecified, Z00.00 - Encounter for general adult medical examination without abnormal findings Lipid Panel Today E78.00 - Pure hypercholesterolemia, unspecified, Z00.00 - Encounter for general adult medical examination without abnormal findings TSH reflex Free T4 Today E78.00 - Pure hypercholesterolemia, unspecified, Z00.00 - Encounter for general adult medical examination without abnormal findings Microalbumin, Random (w Creat) Today E11.9 - Type 2 diabetes mellitus without complications, Z00.00 - Encounter for general adult medical examination without abnormal findings UA CC w/rflx Micro + Cult Today R30.0 - Dysuria, Z00.00 - Encounter for general adult medical examination without abnormal findings Hemoglobin A1c Today E11.9 - Type 2 diabetes mellitus without complications, Z00.00 - Encounter for general adult medical examination without abnormal findings Vitamin D 25-OH Total Today E55.9 - Vitamin D deficiency, unspecified, Z00.00 - Encounter for general adult medical examination without abnormal findings Prostate Specific Antigen Scr Today Z00.00 - Encounter for general adult medical examination without abnormal findings Erythrocyte Sedimentation Rate Today M17.0 - Bilateral primary osteoarthritis of knee, M25.50 - Pain in unspecified joint C Reactive Protein Today M17.0 - Bilateral primary osteoarthritis of knee, M25.50 - Pain in unspecified joint GONZÁLEZ Reflex Titer and Pattern Today M17.0 - Bilateral primary osteoarthritis of knee, M25.50 - Pain in unspecified joint Rheumatoid Factor Today M17.0 - Bilateral primary osteoarthritis of knee, M25.50 - Pain in unspecified joint AMB Hemoglobin A1c Today E11.8 - Type 2 diabetes mellitus with unspecified complications Referrals Cologuard Test Z12.11 - Encounter for screening for malignant neoplasm of colon, Z12.12 - Encounter for screening for malignant neoplasm of rectum Medications: New pantoprazole 40 mg PO DAILY 90 days 90 tabs 1RF Refilled nitroglycerin 0.4 mg sublingual Q5M 30 days PRN 25 tabs 5RF chest pain MDD max 3 doses per episode Coding Level of Care Code Est Pt Prev Care 40-64y(42504) Diagnoses Annual physical exam Z00.00 Atherosclerotic cardiovascular disease I25.10 Type 2 diabetes mellitus with unspecified complications E11.8 Pure hypercholesterolemia E78.00 Essential hypertension I10 Dyspepsia R10.13 Bilateral primary osteoarthritis of knee M17.0 Obesity (BMI 30-39.9) E66.9 Colon cancer screening Z12.11
[2023-05-13 15:47] VITALS: BP 100/60; PULSE 76; O2SAT 93; BMI 30.9
== END 2023-05-13 16:17 | disposition home or self-care (01) ==
PROVIDERS: PCP Internal Medicine; Visit Provider Internal Medicine
DX: Z00.00 Encounter for general adult medical examination without abnormal findings (principal); E11.8 Type 2 diabetes mellitus with unspecified complications; I10 Essential (primary) hypertension; E78.00 Pure hypercholesterolemia, unspecified; I25.10 Atherosclerotic heart disease of native coronary artery without angina pectoris; R10.13 Epigastric pain; M17.0 Bilateral primary osteoarthritis of knee; E66.9 Obesity, unspecified; Z12.11 Encounter for screening for malignant neoplasm of colon
CPT/HCPCS: 83036; 99396

== ENCOUNTER 2023-11-18 15:14 | Outpatient (AMB) | payer OTHER, SELFPAY ==
[2023-11-18 15:21] VITALS: BP 116/70; PULSE 80; O2SAT 95
--- NOTE | 2023-11-18 15:21 | A.OFFPC_ITS ---
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 Accompanied by: Self / Same As Patient Allergies No Known Allergies [No Known Allergies*] Allergy (Verified 11/18/23 15:29) Medication List - Last Reconciled 11/18/23 by Alin Sandy MD aspirin 81 mg PO DAILY atorvastatin 80 mg PO DAILY clonidine HCl 0.1 mg PO BID PRN clopidogrel 75 mg PO DAILY isosorbide mononitrate ER 120 mg PO QAM lisinopril 40 mg PO DAILY metformin 1,000 mg PO BID metoprolol tartrate 100 mg PO BID nitroglycerin 0.4 mg sublingual Q5M PRN 30 days MDD max 3 doses per episode pantoprazole 40 mg PO DAILY 90 days sitagliptin phosphate (Januvia) 100 mg PO DAILY 30 days tizanidine 4 mg PO TID PRN Tobacco use date assessed: 11/18/23 Dental Screening Dental Screen Date: 11/18/23 Did you have a dental visit in the last 12 months?: No Did you have a dental problem in the last 6 months where you did not have access to dental care?: No Was dental information given to patient?: No HPI 4 month f/u HPI Details Patient comes in today for his follow up visit States that he feels okay but has been struggling with increasing knee pain lately Would like to know if there is anything else he can take for his knee pain as OTC Tylenol has not helped much at all lately He denies any headaches or dizziness Denies any chest pains, no shortness of breath No nausea / vomiting, no abdominal pain - states that his previous GI symptoms of bloating and dyspepsia have improved significantly with his Pantoprazole Rx No change in bowel habits noted States that he was not able to get any of his previously ordered labs done He also still has his Cologuard kit at home and has not done the test yet REPLACED BY [facility] Medical History Obesity (BMI 30-39.9) Pure hypercholesterolemia Bilateral primary osteoarthritis of knee Other and unspecified hyperlipidemia Essential hypertension Type 2 diabetes mellitus with unspecified complications Atherosclerotic cardiovascular disease Surgical History History of percutaneous coronary intervention Stented coronary artery History of cardiac catheterization (~02/15/20) History of heart artery stent Family History Father No problems noted. Mother No problems noted. 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 1. Little interest or pleasure in doing things: not at all 2. Feeling down, depressed, or hopeless: not at all 3. Trouble falling or staying asleep, or sleeping too much: not at all 4. Feeling tired or having little energy: not at all 5. Poor appetite or overeating: not at all 6. Feeling bad about yourself - or that you are a failure or have let yourself or your family down: not at all 7. Trouble concentrating on things, such as reading the newspaper or watching television: not at all 8. Moving or speaking so slowly that other people could have noticed. Or the opposite - being so fidgety or restless that you have been moving around a lot more than usual: not at all 9. Thoughts that you would be better off or of hurting yourself in some way: not at all Total score: 0 Depression Screening Interpretation: Negative Depression Screening Done: Yes 24265 - PHQ-9 Billing: Yes Source: Developed by Drs. Wade Perla, Hafsa Oquendo, Mau Barlow and colleagues, with an educational nate from [employer]. Thrive Questionnaire Date Thrive assessed: 11/18/23 I am a: Patient What is your living situation today?: I have a steady place to live Within the past 12 months, did the food you bought not last and you didn't have the money to get more?: Never true Within the past 12 months, did you worry whether your food would run out before you got money to buy more?: Never true Do you have trouble paying for medicines?: No Do you have trouble getting transportation to medical appointments?: No Do you have trouble paying your heating and electricity bill?: No Do you have trouble taking care of your child, family member or friend?: No Do you have trouble with day-to-day activities such as bathing, preparing meals, shopping, managing finances, etc.?: No Are you currently unemployed and looking for a job?: No Are you interested in more education?: No Please select the resources that you would like help with: None Currently or been in a relationship where the following occur: no concerns reported THRIVE Score: 0 AUDIT C Alcohol Use Questionnaire (AUDIT-C) 1. How often do you have a drink containing alcohol?: Never Total Score: 0 Score Reviewed/Action Taken: Yes MARTINA-7 AMB Questionnaire MARTINA-7 Date MARTINA - 7 assessed: 11/18/23 Feeling nervous, anxious, or on edge: 0 = Not at all Not being able to stop or control worryin = Not at all Worrying too much about different things: 0 = Not at all Trouble relaxin = Not at all Being so restless that it is hard to sit still: 0 = Not at all Becoming easily annoyed or irritable: 0 = Not at all Feeling afraid as if something awful might happen: 0 = Not at all Total MARTINA-7 score (0-4 normal; 5-9 mild; 10-14 moderate; 15-21 severe): 0 Source: Developed by Drs. Wade Perla, Hafsa Oquendo, Mau Barlow and colleagues, with an educational nate from [employer]. Review of Systems Const Denies chills, Denies fatigue, Denies fever(s) and Denies headache(s) ENT Denies dysphagia, Denies dizziness, Denies otalgia, Denies headache(s), Denies neck pain, Denies odynophagia and Denies sore throat Card Denies chest pain, Denies palpitations and Denies dyspnea Resp Denies cough and Denies dyspnea GI Denies abdominal pain, Denies bloating, Denies constipation, Denies dysphagia, Denies dyspepsia, Denies heartburn, Denies diarrhea, Denies nausea, Denies odynophagia and Denies vomiting Denies dysuria, Denies nocturia and Denies urinary frequency Musc Denies back pain, Reports arthralgias (over both knees, increased lately) and Denies neck pain Skin/Breast Denies rash Neuro Denies dizziness and Denies headache(s) Endo Denies fatigue and Denies palpitations Physical exam (Primary Care) Vital Signs: Last Vital Signs Pulse 80 11/18/23 15:21 BP 116/70 11/18/23 15:21 Pulse Ox 95 11/18/23 15:21 Oxygen Delivery Method Room Air 11/18/23 15:21 BMI result Body Mass Index 30.0 Tobacco/Smoking Status: Tobacco use Status Tobacco use date assessed 11/18/23 11/18/23 15:25 Patient Tobacco Use Status Former Tobacco user 11/18/23 15:25 Tobacco use type Cigarette 11/18/23 15:25 e-Cigarette/Vaping Use Never Used 11/18/23 15:25 PHQ-9: PHQ-9 Score PHQ-9: Total score 0 11/18/23 15:31 Depression Screening Interpretation: Negative Thrive Assessment: Date of Thrive Assessment Date Thrive assessed 11/18/23 11/18/23 15:25 Currently or been in a relationship where the following occur: no concerns reported Const General: no acute distress and alert HENMT Ears: TM's normal bilaterally and EAC's normal Throat: Yes posterior oropharynx normal and Yes tonsils normal (no TP congestion) Neck Neck: Yes no lymphadenopathy and Yes supple Resp Auscultation: clear to auscultation bilaterally, no rales and no wheezes Cardio Rate: regular rate Rhythm: regular rhythm Heart sounds: no murmurs GI Palpation (GI): Soft to palpation and nontender Auscultation: normal bowel sounds General: Yes no CVA tenderness Back/Spine/Pelvis Back: no CVA tenderness Skin Rashes: no rashes Extrem General: Yes no clubbing, cyanosis or edema Right lower extremity: knee Details: tenderness and crepitus; no swelling Left lower extremity: knee Details: tenderness and crepitus; no swelling Assessment and Plan Assessment & Plan (1) Atherosclerotic cardiovascular disease: Comment: S/P PCI / stenting of LCx on 08/19/2017 and again on 02/15/2020 Code(s): I25.10 - Atherosclerotic heart disease of [place] coronary artery without angina pectoris Plan: Follow up coronary angiography done in 2020 showed no hemodynamically significant lesions in the coronaries Recommended lifelong low dose Aspirin therapy, Clopidogrel (x 12 months post-PCI but cardiology recently decided to keep him on Plavix considering the extent of his CAD), smoking cessation, aggressive risk factor reduction and continuing medical management Continue Metoprolol 100 mg BID and Isosorbide Mononitrate ER 120 mg QD and NTG 0.4 mg SL PRN for chest pains He was also supposed to be on Ranolazine ER 500 mg BID but patient self- discontinued his Ranolazine at some point a couple of years ago - states that he has not had any problems / symptoms since coming off Ranexa Follow up with cardiology as scheduled (2) Type 2 diabetes mellitus with unspecified complications: Code(s): E11.8 - Type 2 diabetes mellitus with unspecified complications Plan: In-office HgbA1c was at 7.8% a few months ago (was previously at 9.9%) - goal is at least < 7.0% Reinforced diabetic diet Continue Metformin 1000 mg BID and Januvia 100 mg QD He was referred for nutrition counseling and dietary teaching a couple of years ago but for reasons unclear (possibly insurance issues) he was never scheduled nor seen (3) Pure hypercholesterolemia: Code(s): E78.00 - Pure hypercholesterolemia, unspecified Plan: Will send patient for some follow up labs and to recheck his fasting lipids [facility] - these were previously ordered at his last visit but he never went and got them done Reinforced low cholesterol diet - goal is LDL cholesterol of 70 mg/dl or less Continue Atorvastatin 80 mg QD Will have him recheck his labs and fasting lipids again in 4 months just before he returns for his next appointment (4) Essential hypertension: Code(s): I10 - Essential (primary) hypertension Plan: Reinforced low sodium diet - goal is systolic BP of 120 mm or less given his current comorbidities Continue Lisinopril 40 mg QD and Metoprolol 100 mg BID (5) Dyspepsia: Code(s): R10.13 - Epigastric pain Plan: States that his GI symptoms have improved significantly with Rx - continue Pantoprazole 40 mg QD Reinforced dietary restrictions (6) Bilateral primary osteoarthritis of knee: Code(s): M17.0 - Bilateral primary osteoarthritis of knee Plan: Follow up with orthopedics as scheduled Due to his increasing joint pains lately, will start him on a trial of Meloxicam 15 mg QD with food PRN Advised that he should take this only when he really needs it and that with his cardiac Hx, we have to use this Rx with caution (7) Obesity (BMI 30-39.9): Code(s): E66.9 - Obesity, unspecified Plan: Reinforced diet/exercise as tolerated/lose weight (8) Colon cancer screening: Code(s): Z12.11 - Encounter for screening for malignant neoplasm of colon Plan: Patient has never had a screening colonoscopy done in the past (by choice) and still does not want to get one done at this time but agreed to getting Cologuard testing States that he currently still has his Cologuard test kit at home and has not yet gotten it done He is advised to try to get this done [facility] as [facility] will usually cancel the test after a month or 2 if they still have not received his sample after a while Plan Follow up in 4 months Orders: Orders Hemoglobin A1c 4 Months E11.9 - Type 2 diabetes mellitus without complications TSH reflex Free T4 4 Months E78.00 - Pure hypercholesterolemia, unspecified UA CC w/rflx Micro + Cult 4 Months R30.0 - Dysuria Vitamin D 25-OH Total 4 Months E55.9 - Vitamin D deficiency, unspecified Lipid Panel 4 Months E78.00 - Pure hypercholesterolemia, unspecified Comprehensive [place]. Panel Fast 4 Months E78.00 - Pure hypercholesterolemia, unspecified Complete Blood Count Auto Diff 4 Months D64.9 - Anemia, unspecified Microalbumin, Random (w Creat) 4 Months E11.9 - Type 2 diabetes mellitus without complications Medications: New meloxicam Take with food 15 mg PO DAILY PRN 30 tabs 0RF pain 30 days Coding Level of Care Code Est Pt Level 4 (90689) Diagnoses Atherosclerotic cardiovascular disease I25.10 Type 2 diabetes mellitus with unspecified complications E11.8 Pure hypercholesterolemia E78.00 Essential hypertension I10 Dyspepsia R10.13 Bilateral primary osteoarthritis of knee M17.0 Obesity (BMI 30-39.9) E66.9 Colon cancer screening Z12.11
== END 2023-11-18 15:39 | disposition home or self-care (01) ==
PROVIDERS: PCP Internal Medicine; Visit Provider Internal Medicine
DX: I25.10 Atherosclerotic heart disease of native coronary artery without angina pectoris (principal); E11.8 Type 2 diabetes mellitus with unspecified complications; Z68.30 Body mass index [BMI] 30.0-30.9, adult; E66.9 Obesity, unspecified; E78.00 Pure hypercholesterolemia, unspecified; I10 Essential (primary) hypertension; R10.13 Epigastric pain; M17.0 Bilateral primary osteoarthritis of knee; Z12.11 Encounter for screening for malignant neoplasm of colon
CPT/HCPCS: 99214

== ENCOUNTER 2024-01-20 12:14 | Outpatient (REF) | payer OTHER, SELFPAY ==
[2024-01-20 13:36] LABS: MANUAL DIFF FLAG NO
[2024-01-20 13:45] LABS: Appearance Urine Clear; Color Urine Yellow; Glucose Urine UA 250 mg/dL (Negative); Leukocyte Esterase Urine Negative (Negative); Nitrite Urine Negative (Negative); PH 5.5 (5.0-9.0); Specific Gravity - Urine >= 1.030 (1.005-1.025); UMIC TRIGGER UACC YES; Urine Blood Negative (Negative); Urine Ketones Negative (Negative); Urine Protein 30 (1+) mg/dL (Neg-Trace)
[2024-01-20 13:53] LABS: Bacteria Urine None Seen (None Seen); Hyaline Casts Urine 0-2 /LPF (0-2); RBC Urine 0-2 /HPF (0-2); Squamous Epithelial Cell Urine 0-2 /HPF (0-2); WBC Urine 0-5 /HPF (0-5)
[2024-01-20 13:58] LABS: Basophils Percent Auto 0.3 % (0-2); Eosinophils Absolute Auto 0.2 X10*3/uL (0.0-0.4); Eosinophils Percent Auto 2.2 % (0-4); Hematocrit 43.2 % (42.0-52.0); Hemoglobin 15.1 g/dl (14.0-18.0); Imm Gran Abs Auto 0.03 X10*3/uL (0.00-0.03); Imm Gran Pct Auto 0.3 % (0.0-0.4); Lymphocytes Absolute Auto 2.4 X10*3/uL (1.2-4.9); Lymphocytes Percent Auto 26.5 % (20-40); Mean Corpuscular Hemoglobin 31.9 pg (27.0-33.0); Mean Corpuscular Volume 91.1 fL (80.0-98.0); Mean Platelet Volume 9.5 fL (9.4-12.4); Monocytes Absolute Auto 0.6 X10*3/uL (0.1-1.2); Neutrophils Absolute Auto 5.8 x10*3/uL (2.0-8.3); Neutrophils Percent Auto 63.7 % (45-73); Platelet Count 312 X10*3/uL (160-400); Red Blood Count 4.74 X10*6/uL (4.60-5.80); Red Cell Distribution Width 12.7 % (11.0-16.0); White Blood Count 9.1 X10*3/uL (4.8-10.8)
[2024-01-20 14:15] LABS: Estimated Average Glucose 151 mg/dL; Hemoglobin A1c % 6.9 % (<6.0)
[2024-01-20 14:47] LABS: Prostate Specific Antigen Scr 0.35 ng/mL (<0.05-4.0)
[2024-01-20 14:49] LABS: Alanine Aminotransferase 27 U/L (0-40); Albumin Level 4.6 g/dL (3.5-5.0); Alkaline Phosphatase 76 U/L (39-117); Anion Gap 15 (12-20); Aspartate Amino Transferase 18 U/L (5-37); Bilirubin Total 0.6 mg/dL (0.0-1.0); Blood Urea Nitrogen 11 mg/dL (9-16); Calcium 9.4 mg/dL (8.4-10.2); Carbon Dioxide 23 mmol/L (22-29); Chloride 106 mmol/L (96-108); Cholesterol 146 mg/dL (<200); Estimated Glomerular Filt Rate > 60; Glucose Fasting 119 mg/dL (60-99); HDL Cholesterol 37 mg/dL (>40); LDL Cholesterol Calculated 75 mg/dL (<100); Potassium 4.1 mmol/L (3.3-5.1); Sodium 140 mmol/L (135-145); TSH reflex Free T4 0.83 uIU/mL (0.32-4.0); Total Protein 7.5 g/dL (6.5-8.0); Triglycerides 171 mg/dL (<150); Vitamin D 25-OH Total 18.1 ng/mL (>30)
[2024-01-20 14:54] LABS: Erythrocyte Sedimentation Rate 5 MM/HR (0-15)
[2024-01-20 15:00] LABS: Creatinine Urine 107.37 mg/dL; Microalbum/Creatinine Ratio Ur 144.3 ug/mg cr (<30)
[2024-01-20 15:03] LABS: Rheumatoid Factor < 13.0 IU/mL (<15.0)
[2024-01-24 15:34] LABS: Anti Nuclear Antibody Pattern Nuclear, Homogeneous; Anti Nuclear Antibody Screen POSITIVE (NEGATIVE); Anti Nuclear Antibody Titer 1:40 titer
== END 2024-01-20 12:15 | disposition home or self-care (01) ==
LOC: HO.HMGCLDS 12:14
PROVIDERS: PCP Internal Medicine; Visit Provider Internal Medicine
DX: Z00.00 Encounter for general adult medical examination without abnormal findings (principal); I10 Essential (primary) hypertension; E11.9 Type 2 diabetes mellitus without complications; E78.00 Pure hypercholesterolemia, unspecified; E55.9 Vitamin D deficiency, unspecified; M17.0 Bilateral primary osteoarthritis of knee; M25.50 Pain in unspecified joint
CPT/HCPCS: 36415; 80053; 80061; 81001; 82043; 82306; 82570; 83036; 84153; 84443; 85025; 85652; 86038; 86039; 86140; 86431

== ENCOUNTER 2024-06-21 15:10 | Outpatient (AMB) | payer OTHER, SELFPAY ==
[2024-06-21 15:24] VITALS: BP 100/62; PULSE 69; BMI 29.4
--- NOTE | 2024-06-21 15:24 | MHC.OFFVIS ---
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 Allergies No Known Allergies [No Known Allergies*] Allergy (Verified 06/21/24 15:26) Medication List - Last Reconciled 06/21/24 by SHANTA Kramer aspirin 81 mg PO DAILY atorvastatin 80 mg PO DAILY clonidine HCl 0.1 mg PO BID PRN clopidogrel 75 mg PO DAILY isosorbide mononitrate ER 120 mg PO QAM 30 days lisinopril 40 mg PO DAILY meloxicam 15 mg PO DAILY PRN 30 days metformin 1,000 mg PO BID metoprolol tartrate 100 mg PO BID nitroglycerin 0.4 mg sublingual Q5M PRN 30 days MDD max 3 doses per episode pantoprazole 40 mg PO DAILY 90 days sitagliptin phosphate (Januvia) 100 mg PO DAILY 30 days tizanidine 4 mg PO TID PRN HPI HPI F/U overdue: Details: Dima is a 49-year-old male with past medical history of hypertension, hyperlipidemia, diabetes, coronary artery disease who presents for follow-up. Today he reports he has been doing quite well since his last visit 05/06/2023. Denies having any chest discomfort at rest or with activity. He denies shortness of breath, PND, orthopnea or edema. No lightheadedness, presyncope, syncope, falls. 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 He is taking all his meds as directed. No bleeding issues reported. [facility] Medical History Obesity (BMI 30-39.9) Pure hypercholesterolemia Bilateral primary osteoarthritis of knee Other and unspecified hyperlipidemia Essential hypertension Type 2 diabetes mellitus with unspecified complications Atherosclerotic cardiovascular disease Surgical History History of percutaneous coronary intervention Stented coronary artery History of cardiac catheterization (~02/15/20) History of heart artery stent Family History Father No problems noted. Mother No problems noted. 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 Cognitive needs: No Hearing needs: No Vision needs: No Review of Systems Const All systems reviewed & are unremarkable except as noted in HPI and below ENT Denies dizziness Card Denies chest pain, Denies chest pain at rest, Denies chest pain with activity, Denies rapid heart rate, Denies pedal edema, Denies edema, Denies leg edema, Denies lightheadedness, Denies palpitations, Denies dyspnea, Denies dyspnea on exertion and Denies orthopnea Resp Denies cough, Denies dyspnea and Denies dyspnea on exertion GI Denies hematochezia and Denies change in stool character Musc Denies abnormal gait, Denies limited range of motion, Denies muscle cramps, Denies muscle weakness, Denies numbness, Denies radiating pain into limb, Denies stiffness and Denies tingling Neuro Denies abnormal gait, Denies dizziness, Denies numbness and Denies tingling Endo Denies palpitations Physical Exam Vital Signs: Last Vital Signs Pulse 69 06/21/24 15:24 BP 100/62 06/21/24 15:24 BMI result Body Mass Index 29.4 Const General: cooperative, healthy appearing, comfortable and no acute distress Orientation/consciousness: patient oriented x3 Neck Neck: Yes normal visual inspection Resp Effort & Inspection: normal respiratory effort Auscultation: clear to auscultation bilaterally, no crackles, no rales, no rhonchi and no wheezes Cardio Jugular venous distension: no JVD Rate: regular rate Rhythm: regular rhythm Heart sounds: S1 normal heart sound present, S2 normal heart sound present, no murmurs and no rubs Neuro General: patient oriented x3 Extrem General: Yes normal to inspection and No no pedal edema Psych Appearance: grossly normal Mental Status: mental status grossly normal Speech and movement: Normal speech and movement present Office Procedures EKG Details: Today, read by me, normal sinus rhythm, no acute ST or T-wave abnormalities, rate 69, QTC 441 milliseconds [id number], Complete Assessment & Plan Assessment & Plan (1) Atherosclerotic cardiovascular disease: Comment: S/P PCI / stenting of LCx on 08/19/2017 Cardiac catheterization 02/15/2020 moderate in stent restenosis of OM3 , ostial 70% OM2, mid to distal LAD 50%, IFR assessments for these were not significant. Code(s): I25.10 - Atherosclerotic heart disease of [place] coronary artery without angina pectoris Category: Medical Plan: History of coronary artery disease with coronary interventions at different times starting in 2009. Last cardiac catheterization as above with moderate in stent stenosis OM3, ostial OM2 70% stenosis, mid to distal LAD 50% stenosis with IFR wires that were not significant. He has been doing well over the last year and denies any anginal symptoms. He has good activity tolerance. EKG done today is showing sinus rhythm with no acute ST or T-wave abnormalities, rate 69. Last echocardiogram was done on 12/25/2020 showing EF 60-65%, grade 1 diastolic dysfunction, basal inferior and inferior septal wall motion abnormality. Will continue with risk factor modification and med management. Continue dual antiplatelet therapy with aspirin and Plavix. Continue high-dose atorvastatin with ideal LDL goal less than 70. Continue metoprolol and isosorbide as dual antianginals. Continue lisinopril for good blood pressure control. He is requesting a refill for nitroglycerin sublingual just to have on hand. Reviewed signs and symptoms of angina. Emergency care if ever needed for symptoms not relieved by rest. Cardiology follow-up in 1 year, sooner if needed. (2) Essential hypertension: Code(s): I10 - Essential (primary) hypertension Category: Medical Plan: Well controlled at this time. Running on the low side, asymptomatic. Continue metoprolol, lisinopril, isosorbide. (3) Other and unspecified hyperlipidemia: Code(s): E78.5 - Hyperlipidemia, unspecified Category: Medical Plan: [place] LDL goal less than 70. Labs done 01/20/2024 showed LDL 75. Informed him this is not ideal. He tells me he has been losing weight and expects his numbers to be better. Recommend a repeat lipid profile in the near future. Continue atorvastatin 80 mg daily. If LDL is not to goal on next check then recommend addition of Zetia. (4) Type 2 diabetes mellitus with unspecified complications: Code(s): E11.8 - Type 2 diabetes mellitus with unspecified complications Category: Medical Plan: Hemoglobin A1c goal less than 7. Labs done 01/20/2024 showed hemoglobin A1c 6.9. Followed by his PCP. Plan Time spent on chart review, documentation, interview and assessment Medications: Changed From isosorbide mononitrate ER Must call and schedule cardiovascular appt for refills [phone] 120 mg PO QAM 30 days 30 tabs 0RF To isosorbide mononitrate ER 120 mg PO QAM 90 days 90 tabs 3RF Refilled nitroglycerin 0.4 mg sublingual Q5M 30 days PRN 25 tabs 2RF chest pain MDD max 3 doses per episode Coding Level of Care Code Est Pt Level 4 (49947) Diagnoses Atherosclerotic cardiovascular disease I25.10 Essential hypertension I10 Other and unspecified hyperlipidemia E78.5 Type 2 diabetes mellitus with unspecified complications E11.8 CPT Codes EKG - CPT: [id number], Complete ([id number]) Time Spent (min) 28
== END 2024-06-21 15:52 | disposition home or self-care (01) ==
PROVIDERS: PCP Internal Medicine; Visit Provider Nurse Practitioner Family
DX: I25.10 Atherosclerotic heart disease of native coronary artery without angina pectoris (principal); I10 Essential (primary) hypertension; E78.5 Hyperlipidemia, unspecified; E11.8 Type 2 diabetes mellitus with unspecified complications
CPT/HCPCS: 93010; 99214

== ENCOUNTER → 2024-06-21 15:10 | Outpatient (BNVA) | payer OTHER, SELFPAY | PROVIDERS: PCP Internal Medicine; Visit Provider Nurse Practitioner Family | DX: I25.10 Atherosclerotic heart disease of native coronary artery without angina pectoris (principal); I10 Essential (primary) hypertension; E78.5 Hyperlipidemia, unspecified; E11.8 Type 2 diabetes mellitus with unspecified complications | CPT/HCPCS: 93005; 99212 ==

== ENCOUNTER 2025-01-10 16:06 | Outpatient (AMB) | payer OTHER, SELFPAY ==
[2025-01-10 16:09] VITALS: BP 112/80; PULSE 73; O2SAT 94
--- NOTE | 2025-01-10 16:09 | A.OFFPC_ITS ---
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 Accompanied by: Self / Same As Patient Allergies No Known Allergies [No Known Allergies*] Allergy (Verified 01/15/25 19:35) Medication List - Last Reconciled 01/15/25 by Alin Sandy MD aspirin 81 mg PO DAILY atorvastatin 80 mg PO DAILY clonidine HCl 0.1 mg PO BID PRN clopidogrel 75 mg PO DAILY isosorbide mononitrate ER 120 mg PO QAM 90 days lisinopril 40 mg PO DAILY meloxicam 15 mg PO DAILY PRN 30 days metformin 1,000 mg PO BID metoprolol tartrate 100 mg PO BID nitroglycerin 0.4 mg sublingual Q5M PRN 30 days MDD max 3 doses per episode pantoprazole 40 mg PO DAILY 90 days sitagliptin phosphate (Januvia) 100 mg PO DAILY 90 days tizanidine 4 mg PO TID PRN Tobacco use date assessed: 01/10/25 Dental Screening Dental Screen Date: 01/10/25 Did you have a dental visit in the last 12 months?: No Did you have a dental problem in the last 6 months where you did not have access to dental care?: No Was dental information given to patient?: No HPI pe HPI Details Patient comes in today for his annual physical examination States that he feels okay He denies any headaches or dizziness Denies any chest pains, no increased shortness of breath No nausea/vomiting, no abdominal pain No change in bowel habits noted He denies any acute urinary symptoms He has never had a screening colonoscopy done in the past and would like to try getting Cologuard testing done instead Cologuard testing was ordered at his physical exam last year but he was not able to get that done and submit that in time [facility] Medical History (Updated 01/15/25 @ 19:43 by Alin Sandy MD) Diabetes mellitus Obesity (BMI 30-39.9) Pure hypercholesterolemia Bilateral primary osteoarthritis of knee Other and unspecified hyperlipidemia Essential hypertension Type 2 diabetes mellitus with unspecified complications Atherosclerotic cardiovascular disease Surgical History History of percutaneous coronary intervention Stented coronary artery History of cardiac catheterization (~02/15/20) History of heart artery stent Family History Father No problems noted. Mother No problems noted. 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 1. Little interest or pleasure in doing things: not at all 2. Feeling down, depressed, or hopeless: not at all 3. Trouble falling or staying asleep, or sleeping too much: not at all 4. Feeling tired or having little energy: not at all 5. Poor appetite or overeating: not at all 6. Feeling bad about yourself - or that you are a failure or have let yourself or your family down: not at all 7. Trouble concentrating on things, such as reading the newspaper or watching television: not at all 8. Moving or speaking so slowly that other people could have noticed. Or the opposite - being so fidgety or restless that you have been moving around a lot more than usual: not at all 9. Thoughts that you would be better off or of hurting yourself in some way: not at all Total score: 0 Depression Screening Interpretation: Negative Depression Screening Done: Yes 26474 - PHQ-9 Billing: Yes Source: Developed by Drs. Wade Perla, Hafsa Oquendo, Mau Barlow and colleagues, with an educational nate from [employer]. Thrive Questionnaire Date Thrive assessed: 01/10/25 I am a: Patient What is your living situation today?: I have a steady place to live Within the past 12 months, did the food you bought not last and you didn't have the money to get more?: Never true Within the past 12 months, did you worry whether your food would run out before you got money to buy more?: I choose not to answer this question Do you have trouble paying for medicines?: I choose not to answer this question Do you have trouble getting transportation to medical appointments?: No Do you have trouble paying your heating and electricity bill?: I choose not to answer this question Do you have trouble taking care of your child, family member or friend?: No Do you have trouble with day-to-day activities such as bathing, preparing meals, shopping, managing finances, etc.?: No Are you currently unemployed and looking for a job?: No Are you interested in more education?: No Please select the resources that you would like help with: None Currently or been in a relationship where the following occur: I choose not to answer THRIVE Score: 0 AUDIT C Alcohol Use Questionnaire (AUDIT-C) 1. How often do you have a drink containing alcohol?: Never 3. How often do you have six or more drinks on one occasion?: Never Total Score: 0 Score Reviewed/Action Taken: Yes MARTINA-7 AMB Questionnaire MARTINA-7 Date MARTINA - 7 assessed: 01/10/25 Feeling nervous, anxious, or on edge: 0 = Not at all Not being able to stop or control worryin = Not at all Worrying too much about different things: 0 = Not at all Trouble relaxin = Not at all Being so restless that it is hard to sit still: 0 = Not at all Becoming easily annoyed or irritable: 0 = Not at all Feeling afraid as if something awful might happen: 0 = Not at all Total MARTINA-7 score (0-4 normal; 5-9 mild; 10-14 moderate; 15-21 severe): 0 Source: Developed by Drs. Wade Perla, Hafsa Oquendo, Mau Barlow and colleagues, with an educational nate from [employer]. Review of Systems Const Denies chills, Denies fatigue, Denies fever(s), Denies headache(s), Denies malaise and Denies weakness Eyes Denies blurry vision, Denies change in vision, Denies irritation and Denies i tchy eyes ENT Denies dysphagia, Denies dizziness, Denies otalgia, Denies headache(s), Denies nasal congestion, Denies neck pain, Denies odynophagia and Denies sore throat Card Denies chest pain, Denies rapid heart rate, Denies irregular heart rhythm, Denies palpitations and Denies dyspnea Resp Denies chest congestion, Denies cough, Denies dyspnea and Denies wheezing GI Denies abdominal pain, Denies bloating, Denies constipation, Denies dysphagia, Denies heartburn, Denies diarrhea, Denies nausea, Denies odynophagia and Denies vomiting Denies hematuria, Denies difficulty urinating, Denies dysuria, Denies urinary frequency and Denies urinary urgency Musc Denies back pain, Denies arthralgias, Denies joint swelling, Denies muscle weakness and Denies neck pain Skin/Breast Denies change in pigmentation, Denies lesions, Denies rash and Denies unusual bruising Neuro Denies dizziness, Denies headache(s), Denies paresthesias and Denies weakness Endo Denies fatigue and Denies palpitations Aller/Immun Denies itchy eyes and Denies wheezing Physical exam (Primary Care) Vital Signs: Last Vital Signs Pulse 73 01/10/25 16:09 BP 112/80 01/10/25 16:09 Pulse Ox 94 01/10/25 16:09 Oxygen Delivery Method Room Air 01/10/25 16:09 BMI result Body Mass Index 30.0 Tobacco/Smoking Status: Tobacco use Status Tobacco use date assessed 01/10/25 01/10/25 16:11 Patient Tobacco Use Status Former Tobacco user 01/10/25 16:11 Tobacco use type Cigarette 01/10/25 16:11 e-Cigarette/Vaping Use Never Used 01/10/25 16:11 PHQ-9: PHQ-9 Score PHQ-9: Total score 0 01/10/25 16:54 Depression Screening Interpretation: Negative Thrive Assessment: Date of Thrive Assessment Date Thrive assessed 01/10/25 01/10/25 16:11 Currently or been in a relationship where the following occur: I choose not to answer Const General: no acute distress, alert and awake Orientation/consciousness: patient oriented x3 HENMT Head: Yes normocephalic and Yes atraumatic Ears: external ears normal, TM's normal bilaterally and EAC's normal General nose exam: No nasal discharge present Face and sinus: Yes normal facial exam and Yes sinuses nontender Teeth and gingiva: dentition normal Throat: Yes posterior oropharynx normal and Yes tonsils normal (no TP congestion) Eyes Eyelids: Yes eyelids normal Conjunctivae: conjunctivae normal Pupils: Equal, round and reactive pupils present EOM: EOMs intact bilaterally Neck Neck: Yes no lymphadenopathy and Yes supple Thyroid: Thyroid normal Resp Auscultation: clear to auscultation bilaterally, no rales and no wheezes Cardio Rate: regular rate Rhythm: regular rhythm Heart sounds: no murmurs GI Palpation (GI): Soft to palpation, nontender and No hepatosplenomegaly present Auscultation: normal bowel sounds General: Yes no CVA tenderness Back/Spine/Pelvis Back: no CVA tenderness Thoracic/Lumbar Spine: thoracic and lumbar spine normal to inspection Skin Lesions: no lesions Rashes: no rashes Neuro General: patient oriented x3, moves all extremities, no focal motor deficits and CN's II-XI intact bilaterally Cranial nerves: Yes Equal, round and reactive pupils present Cognition (Neuro): normal cognition Gait exam (Neuro): Normal gait present Extrem General: Yes no clubbing, cyanosis or edema Coding Level of Care Code Est Pt Prev Care 40-64y(34563) Diagnoses Annual physical exam Z00.00 Atherosclerotic cardiovascular disease I25.10 Type 2 diabetes mellitus with hyperglycemia, without long-term current use of insulin E11.65 Diabetes mellitus type: type 2 Diabetes mellitus [facility] insulin use: without [facility] use Diabetes mellitus complication status: with hyperglycemia Pure hypercholesterolemia E78.00 Essential hypertension I10 Dyspepsia R10.13 Bilateral primary osteoarthritis of knee M17.0 Obesity (BMI 30-39.9) E66.9 Colon cancer screening Z12.11 Additional Codes PHQ-9 - 50405 - PHQ-9 Billing: Yes ([id number]) Assessment & Plan Assessment & Plan (1) Annual physical exam: Code(s): Z00.00 - Encounter for general adult medical examination without abnormal findings Category: Medical Plan: Check labs He has never had a screening colonoscopy done in the past, by choice - prefers again to get Cologuard testing instead if possible (2) Atherosclerotic cardiovascular disease: Comment: S/P PCI / stenting of LCx on 08/19/2017 Cardiac catheterization 02/15/2020 moderate in stent restenosis of OM3 , ostial 70% OM2, mid to distal LAD 50%, IFR assessments for these were not significant. Code(s): I25.10 - Atherosclerotic heart disease of [place] coronary artery without angina pectoris Category: Medical Plan: Follow up coronary angiography done in 2020 showed no hemodynamically significant lesions in the coronaries He was recommended on lifelong low dose Aspirin therapy, Clopidogrel (x 12 months post-PCI but cardiology recently decided to keep him on Plavix considering the extent of his CAD), smoking cessation, aggressive risk factor reduction and continuing medical management Continue Aspirin 81 mg QD and Clopidogrel 75 mg QD Continue Metoprolol 100 mg BID and Isosorbide Mononitrate ER 120 mg QD and NTG 0.4 mg SL PRN for chest pains He was also supposed to be on Ranolazine ER 500 mg BID but patient self- discontinued his Ranolazine at some point a couple of years ago - states that he has not had any problems / symptoms since coming off Ranexa Follow up with cardiology as scheduled (3) Diabetes mellitus: Code(s): E11.9 - Type 2 diabetes mellitus without complications Category: Medical Qualifiers: Diabetes mellitus type: type 2 Diabetes mellitus [employer] insulin use: without [employer] use Diabetes mellitus complication status: with hyperglycemia Qualified Code(s): E11.65 - Type 2 diabetes mellitus with hyperglycemia Plan: His HgbA1c was at 6.9% when last checked in January 2024 (in-office HgbA1c was at 7.8% a few months prior to that) - goal is at least < 7.0% Reinforced diabetic diet Continue Metformin 1000 mg BID and Januvia 100 mg QD He was referred for nutrition counseling and dietary teaching a couple of years ago but for reasons unclear (possibly insurance issues) he was never scheduled nor seen (4) Pure hypercholesterolemia: Code(s): E78.00 - Pure hypercholesterolemia, unspecified Category: Medical Plan: Will send patient for some labs [facility] to update his labs and fasting lipids Reinforced low cholesterol diet - goal is LDL cholesterol level of 70 mg/dl or less Continue Atorvastatin 80 mg QD Will have him recheck his labs and fasting lipids again in 4 months for follow up (5) Essential hypertension: Code(s): I10 - Essential (primary) hypertension Category: Medical Plan: Reinforced low sodium diet - goal is systolic BP of 120 mm or less given his current comorbidities Continue Lisinopril 40 mg QD and Metoprolol 100 mg BID (6) Dyspepsia: Code(s): R10.13 - Epigastric pain Category: Medical Plan: States that his GI symptoms have improved significantly with Rx - continue Pantoprazole 40 mg QD Reinforced dietary restrictions (7) Bilateral primary osteoarthritis of knee: Code(s): M17.0 - Bilateral primary osteoarthritis of knee Category: Medical Plan: Due to his increasing joint pains last year, he was started on a trial of Meloxicam 15 mg QD with food PRN He was advised that he should take this only when he really needs it and that with his cardiac Hx, he has to use this Rx with caution (8) Obesity (BMI 30-39.9): Code(s): E66.9 - Obesity, unspecified Category: Medical Plan: Reinforced diet/exercise as tolerated/lose weight (9) Colon cancer screening: Code(s): Z12.11 - Encounter for screening for malignant neoplasm of colon Category: Medical Plan: Patient has never had a screening colonoscopy done in the past by choice We ordered Cologuard testing on him last year but he was never able to get this done Per request, will order Cologuard testing again and he is advised to get this done as soon as he receives his test kit in the mail Plan Follow up in 4 months Orders: Orders Lipid Panel 01/10/25 E78.00 - Pure hypercholesterolemia, unspecified, Z00.00 - Encounter for general adult medical examination without abnormal findings TSH reflex Free T4 01/10/25 E78.00 - Pure hypercholesterolemia, unspecified, Z00.00 - Encounter for general adult medical examination without abnormal findings UA CC w/rflx Micro + Cult 01/10/25 R30.0 - Dysuria, Z00.00 - Encounter for general adult medical examination without abnormal findings Vitamin B12 and Folate 01/10/25 E53.8 - Deficiency of other specified B group vitamins, Z00.00 - Encounter for general adult medical examination without abnormal findings Microalbumin, Random (w Creat) 01/10/25 E11.9 - Type 2 diabetes mellitus without complications, Z00.00 - Encounter for general adult medical examination without abnormal findings Comprehensive [place]. Panel Fast 4 Months E78.00 - Pure hypercholesterolemia, unspecified Lipid Panel 4 Months E78.00 - Pure hypercholesterolemia, unspecified Complete Blood Count Auto Diff 01/10/25 D64.9 - Anemia, unspecified, Z00.00 - Encounter for general adult medical examination without abnormal findings Comprehensive [place]. Panel Fast 01/10/25 E78.00 - Pure hypercholesterolemia, unspecified, Z00.00 - Encounter for general adult medical examination without abnormal findings Vitamin D 25-OH Total 01/10/25 E55.9 - Vitamin D deficiency, unspecified, Z00.00 - Encounter for general adult medical examination without abnormal findings Hemoglobin A1c 01/10/25 E11.9 - Type 2 diabetes mellitus without complications, Z00.00 - Encounter for general adult medical examination without abnormal findings Complete Blood Count Auto Diff 4 Months D64.9 - Anemia, unspecified Hemoglobin A1c 4 Months E11.9 - Type 2 diabetes mellitus without complications Referrals Cologuard Test Z12.11 - Encounter for screening for malignant neoplasm of colon Medications: Changed From sitagliptin phosphate (Januvia) 100 mg PO DAILY 30 days 30 tabs 3RF E11.8 - Type 2 diabetes mellitus with unspecified complications To sitagliptin phosphate (Januvia) 100 mg PO DAILY 90 days 90 tabs 3RF E11.8 - Type 2 diabetes mellitus with unspecified complications
== END 2025-01-10 17:00 | disposition home or self-care (01) ==
LOC: HO.HMCH 16:07
PROVIDERS: PCP Internal Medicine; Visit Provider Internal Medicine
DX: Z00.00 Encounter for general adult medical examination without abnormal findings (principal); E11.65 Type 2 diabetes mellitus with hyperglycemia; E66.9 Obesity, unspecified; Z68.30 Body mass index [BMI] 30.0-30.9, adult; I25.10 Atherosclerotic heart disease of native coronary artery without angina pectoris; E78.00 Pure hypercholesterolemia, unspecified; I10 Essential (primary) hypertension; R10.13 Epigastric pain; M17.0 Bilateral primary osteoarthritis of knee; Z12.11 Encounter for screening for malignant neoplasm of colon

== ENCOUNTER → 2025-01-10 16:06 | Outpatient (BNVA) | payer OTHER, SELFPAY | PROVIDERS: PCP Internal Medicine; Visit Provider Internal Medicine | DX: Z00.00 Encounter for general adult medical examination without abnormal findings (principal); I25.10 Atherosclerotic heart disease of native coronary artery without angina pectoris; E11.65 Type 2 diabetes mellitus with hyperglycemia; E78.00 Pure hypercholesterolemia, unspecified; R10.13 Epigastric pain; I10 Essential (primary) hypertension; M17.0 Bilateral primary osteoarthritis of knee; E66.9 Obesity, unspecified; Z68.30 Body mass index [BMI] 30.0-30.9, adult; Z71.3 Dietary counseling and surveillance | CPT/HCPCS: 96127; 99396 ==

== ENCOUNTER 2025-05-22 11:56 | Outpatient (REF) | payer OTHER, SELFPAY ==
[2025-05-22 12:09] LABS: MANUAL DIFF FLAG NO
[2025-05-22 12:47] LABS: Hematocrit 33.3 % (42.0-52.0); Hemoglobin 11.7 g/dl (14.0-18.0); Imm Gran Abs Auto 0.04 X10*3/uL (0.00-0.03); Imm Gran Pct Auto 0.4 % (0.0-0.4); Lymphocytes Absolute Auto 2.2 X10*3/uL (1.2-4.9); Mean Corpuscular HGB Conc 35.1 g/dl (31.0-36.0); Mean Corpuscular Hemoglobin 32.3 pg (27.0-33.0); Mean Corpuscular Volume 92.0 fL (80.0-98.0); NRBC Abs Auto 0.000 X10*3/uL (0.0-0.012); NRBC Pct Auto 0.0 /100WBC (0.0-0.2); Platelet Count 284 X10*3/uL (160-400); Red Blood Count 3.62 X10*6/uL (4.60-5.80); White Blood Count 9.2 X10*3/uL (4.8-10.8)
[2025-05-22 12:51] LABS: Appearance Urine Clear; Glucose Urine UA 250 mg/dL (Negative); PH 5.5 (5.0-9.0); Specific Gravity - Urine 1.025 (1.005-1.025); UMIC TRIGGER UACC YES
[2025-05-22 13:07] LABS: Hemoglobin A1C 216.2846 umol/L; Total Hemoglobin (HGBA1C) 3167.3146 umol/L
[2025-05-22 13:29] LABS: Alanine Aminotransferase 30 U/L (0-40); Albumin Level 4.5 g/dL (3.5-5.0); Alkaline Phosphatase 73 U/L (39-117); Anion Gap 13 (12-20); Aspartate Amino Transferase 27 U/L (5-37); Blood Urea Nitrogen 20 mg/dL (9-16); Calcium 9.0 mg/dL (8.4-10.2); Carbon Dioxide 24 mmol/L (22-29); Chloride 110 mmol/L (96-108); Cholesterol 113 mg/dL (<200); Estimated Glomerular Filt Rate > 60; HDL Cholesterol 32 mg/dL (>40); Potassium 3.7 mmol/L (3.3-5.1); Sodium 143 mmol/L (135-145); Total Protein 6.8 g/dL (6.5-8.0); Triglycerides 221 mg/dL (<150)
[2025-05-22 13:55] LABS: Folate 8.8 ng/mL (> or = 4.0); Vitamin B12 223 pg/mL (200-900)
[2025-05-22 14:29] LABS: Microalbum/Creatinine Ratio Ur 41.8 ug/mg cr (<30)
== END 2025-05-22 11:57 | disposition home or self-care (01) ==
LOC: HO.LAB 11:56
PROVIDERS: PCP Internal Medicine; Visit Provider Internal Medicine
DX: I25.10 Atherosclerotic heart disease of native coronary artery without angina pectoris (principal); E11.65 Type 2 diabetes mellitus with hyperglycemia; E78.00 Pure hypercholesterolemia, unspecified; I10 Essential (primary) hypertension; R10.13 Epigastric pain; M17.0 Bilateral primary osteoarthritis of knee; E66.9 Obesity, unspecified; D64.9 Anemia, unspecified; R30.0 Dysuria; Z79.82 Long term (current) use of aspirin; Z79.84 Long term (current) use of oral hypoglycemic drugs; Z79.899 Other long term (current) drug therapy; Z00.00 Encounter for general adult medical examination without abnormal findings; E53.8 Deficiency of other specified B group vitamins; E55.9 Vitamin D deficiency, unspecified; Z13.31 Encounter for screening for depression; Z13.39 Encounter for screening examination for other mental health and behavioral disorders
CPT/HCPCS: 36415; 80053; 80061; 81001; 82043; 82306; 82570; 82607; 82746; 83036; 84443; 85025; 96127; 99212

== ENCOUNTER 2025-05-22 15:32 | Outpatient (AMB) | payer OTHER, SELFPAY ==
--- NOTE | 2025-05-22 15:34 | MHC.PC.OV ---
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 Required: No Accompanied by: Self / Same As Patient Allergies No Known Allergies (No Known Allergies*) Allergy (Verified 05/22/25 16:07) Medication List - Last Reconciled 05/22/25 by Alin Sandy MD aspirin 81 mg PO DAILY atorvastatin 80 mg PO DAILY 90 days clonidine HCl 0.1 mg PO BID PRN clopidogrel 75 mg PO DAILY isosorbide mononitrate ER 120 mg PO QAM lisinopril 40 mg PO DAILY meloxicam 15 mg PO DAILY PRN 30 days metformin 1,000 mg PO BID metoprolol tartrate 100 mg PO BID nitroglycerin 0.4 mg sublingual Q5M PRN 30 days MDD max 3 doses per episode pantoprazole 40 mg PO DAILY 90 days sitagliptin phosphate (Januvia) 100 mg PO DAILY 90 days tizanidine 4 mg PO TID PRN Tobacco use date assessed: 05/22/25 Dental Screening Dental Screen Date: 05/22/25 Did you have a dental visit in the last 12 months?: No Did you have a dental problem in the last 6 months where you did not have access to dental care?: No Was dental information given to patient?: No HPI 4 Months HPI Details Patient comes in today for his follow-up visit States that he feels okay He denies any headaches or dizziness Denies any chest pains, no shortness of breath No nausea/vomiting, no abdominal pain No change in bowel habits noted Needs all of his Rx refilled today He had his follow-up labs done earlier today - to discuss his results [facility] Medical History Diabetes mellitus Obesity (BMI 30-39.9) Pure hypercholesterolemia Bilateral primary osteoarthritis of knee Other and unspecified hyperlipidemia Essential hypertension Type 2 diabetes mellitus with unspecified complications Atherosclerotic cardiovascular disease Surgical History History of percutaneous coronary intervention Stented coronary artery History of cardiac catheterization (~02/15/20) History of heart artery stent Family History Father No problems noted. Mother No problems noted. Social History Housing: Apartment Alcohol intake: former Year quit: 2020 Patient Tobacco Use Status: Former Tobacco user Tobacco use type: Cigarette Years Smoked: 30+/- e-Cigarette/Vaping Use: Never Used Second Hand Smoke Exposure: Yes service: No Current occupational status: employed Current occupation: [employer] Cognitive needs: No Hearing needs: No Vision needs: No Questionnaire PHQ-9 Over the last 2 weeks, how often have you been bothered by any of the following problems? 1. Little interest or pleasure in doing things: not at all 2. Feeling down, depressed, or hopeless: not at all 3. Trouble falling or staying asleep, or sleeping too much: not at all 4. Feeling tired or having little energy: not at all 5. Poor appetite or overeating: not at all 6. Feeling bad about yourself - or that you are a failure or have let yourself or your family down: not at all 7. Trouble concentrating on things, such as reading the newspaper or watching television: not at all 8. Moving or speaking so slowly that other people could have noticed. Or the opposite - being so fidgety or restless that you have been moving around a lot more than usual: not at all 9. Thoughts that you would be better off or of hurting yourself in some way: not at all Total score: 0 Depression Screening Interpretation: Negative Depression Screening Done: Yes 52063 - PHQ-9 Billing: Yes Source: Developed by Drs. Wade Perla, Hafsa Oquendo, Mau Barlow and colleagues, with an educational nate from [employer] Thrive Questionnaire Date Thrive assessed: 05/22/25 I am a: Patient What is your living situation today?: I have a steady place to live Within the past 12 months, did the food you bought not last and you didn't have the money to get more?: Never true Within the past 12 months, did you worry whether your food would run out before you got money to buy more?: I choose not to answer this question Do you have trouble paying for medicines?: I choose not to answer this question Do you have trouble getting transportation to medical appointments?: No Do you have trouble paying your heating and electricity bill?: I choose not to answer this question Do you have trouble taking care of your child, family member or friend?: No Do you have trouble with day-to-day activities such as bathing, preparing meals, shopping, managing finances, etc.?: No Are you currently unemployed and looking for a job?: No Are you interested in more education?: No Please select the resources that you would like help with: None Currently or been in a relationship where the following occur: I choose not to answer THRIVE Score: 0 AUDIT C Alcohol Use Questionnaire (AUDIT-C) 1. How often do you have a drink containing alcohol?: Never 3. How often do you have six or more drinks on one occasion?: Never Total Score: 0 Score Reviewed/Action Taken: Yes MARTINA-7 AMB Questionnaire MARTINA-7 Date MARTINA - 7 assessed: 05/22/25 Feeling nervous, anxious, or on edge: 0 = Not at all Not being able to stop or control worryin = Not at all Worrying too much about different things: 0 = Not at all Trouble relaxin = Not at all Being so restless that it is hard to sit still: 0 = Not at all Becoming easily annoyed or irritable: 0 = Not at all Feeling afraid as if something awful might happen: 0 = Not at all Total MARTINA-7 score (0-4 normal; 5-9 mild; 10-14 moderate; 15-21 severe): 0 Source: Developed by Drs. Wade Perla, Hafsa Oquendo, Mau Barlow and colleagues, with an educational nate from [employer] Review of Systems Const Denies chills, Denies fatigue, Denies fever(s) and Denies headache(s) ENT Denies dysphagia, Denies dizziness, Denies otalgia, Denies headache(s), Denies neck pain, Denies odynophagia and Denies sore throat Card Denies chest pain, Denies rapid heart rate, Denies palpitations and Denies dyspnea Resp Denies chest congestion, Denies cough and Denies dyspnea GI Denies abdominal pain, Denies constipation, Denies dysphagia, Denies heartburn, Denies diarrhea, Denies nausea, Denies odynophagia and Denies vomiting Denies difficulty urinating, Denies dysuria and Denies urinary frequency Musc Denies back pain, Denies arthralgias and Denies neck pain Skin/Breast Denies rash Neuro Denies dizziness, Denies headache(s) and Denies paresthesias Endo Denies fatigue and Denies palpitations Physical exam (Primary Care) Vital Signs: Last Vital Signs Pulse 85 05/22/25 15:36 BP 114/66 05/22/25 15:36 Pulse Ox 97 05/22/25 15:36 Oxygen Delivery Method Room Air 05/22/25 15:36 BMI result Body Mass Index 27.1 Tobacco/Smoking Status: Tobacco use Status Tobacco use date assessed 05/22/25 05/22/25 15:41 Patient Tobacco Use Status Former Tobacco user 05/22/25 15:35 Tobacco use type Cigarette 05/22/25 15:35 e-Cigarette/Vaping Use Never Used 05/22/25 15:35 PHQ-9: PHQ-9 Score PHQ-9: Total score 0 05/22/25 16:09 Depression Screening Interpretation: Negative Thrive Assessment: Date of Thrive Assessment Date Thrive assessed 05/22/25 05/22/25 15:41 Currently or been in a relationship where the following occur: I choose not to answer Const General: no acute distress and alert HENMT Ears: TM's normal bilaterally and EAC's normal Throat: Yes posterior oropharynx normal and Yes tonsils normal (no TP congestion) Neck Neck: Yes supple and No lymphadenopathy Thyroid: Thyroid normal Resp Auscultation: clear to auscultation bilaterally, no rales and no wheezes Cardio Rate: regular rate Rhythm: regular rhythm Heart sounds: no murmurs GI Palpation (GI): Soft to palpation and nontender Auscultation: normal bowel sounds General: Yes no CVA tenderness Back/Spine/Pelvis Back: no CVA tenderness Thoracic/Lumbar Spine: No lumbar spinal tenderness Skin Rashes: no rashes Extrem General: Yes no clubbing, cyanosis or edema Results Reviewed Results Reviewed: Laboratory Tests 05/22/25 05/22/25 12:04 12:08 WBC 9.2 Hgb 11.7 L D Hct 33.3 L D Plt Count 284 Sodium 143 Potassium 3.7 Creatinine 1.11 Estimated GFR > 60 Fasting Glucose 110 H Hemoglobin A1c % 8.4 H Calcium 9.0 AST 27 ALT 30 Triglycerides 221 H Cholesterol 113 LDL Cholesterol, Calc 37 HDL Cholesterol 32 L Vitamin B12 223 25-OH Vitamin D Total 31.3 TSH 1.92 Ur Specific [place] 1.025 Urine Protein 30 (1+) H Urine Glucose (UA) 250 H Urine Blood Negative Urine Nitrite Negative Ur Leukocyte Esterase Trace H Microalb/Creat Ratio 41.8 H Coding Level of Care Code Est Pt Level 4 (59474) Complex EM visit Add On G2211 Diagnoses Atherosclerotic cardiovascular disease I25.10 Type 2 diabetes mellitus with hyperglycemia, without long-term current use of insulin E11.65 Diabetes mellitus complication status: with hyperglycemia Diabetes mellitus long chain beamer insulin use: without long chain beamer use Diabetes mellitus type: type 2 Pure hypercholesterolemia E78.00 Essential hypertension I10 Dyspepsia R10.13 Bilateral primary osteoarthritis of knee M17.0 Obesity (BMI 30-39.9) E66.9 Additional Codes PHQ-9 - 48368 - PHQ-9 Billing: Yes ([id number]) Assessment & Plan Assessment & Plan (1) Atherosclerotic cardiovascular disease: Comment: S/P PCI / stenting of LCx on 08/19/2017 Cardiac catheterization 02/15/2020 moderate in stent restenosis of OM3 , ostial 70% OM2, mid to distal LAD 50%, IFR assessments for these were not significant. Code(s): I25.10 - Atherosclerotic heart disease of [place] coronary artery without angina pectoris Category: Medical Plan: Follow up coronary angiography done in 2020 showed no hemodynamically significant lesions in the coronaries He was recommended lifelong low dose Aspirin therapy, Clopidogrel (x 12 months post-PCI but cardiology recently decided to keep him on Plavix considering the extent of his CAD), smoking cessation, aggressive risk factor reduction and continuing medical management Continue Aspirin 81 mg QD and Clopidogrel 75 mg QD Continue Metoprolol 100 mg BID and Isosorbide Mononitrate ER 120 mg QD and NTG 0.4 mg SL PRN for chest pains He was also supposed to be on Ranolazine ER 500 mg BID but patient self-discontinued his Ranolazine at some point a couple of years ago - states that he has not had any problems / symptoms since coming off Ranexa Follow up with cardiology as scheduled (2) Diabetes mellitus: Code(s): E11.9 - Type 2 diabetes mellitus without complications Category: Medical Qualifiers: Diabetes mellitus complication status: with hyperglycemia Diabetes mellitus long chain beamer insulin use: without snf use Diabetes mellitus type: type 2 Qualified Code(s): E11.65 - Type 2 diabetes mellitus with hyperglycemia Plan: His HgbA1c was at 8.4% on his labs done earlier today (was at 6.9% when previously checked over a year ago in January 2024) - goal is at least < 7.0% Reinforced diabetic diet Continue Metformin 1000 mg BID and Januvia 100 mg QD for now He admits that he ran out of his Januvia Rx a couple of weeks ago and he will be started back on this today - new Rx sent to his local pharmacy He was referred for nutrition counseling and dietary teaching a couple of years ago but for reasons unclear (possibly insurance issues) he was never scheduled nor seen (3) Pure hypercholesterolemia: Code(s): E78.00 - Pure hypercholesterolemia, unspecified Category: Medical Plan: Results of his labs done earlier today reviewed and discussed with patient - he is advised that his serum triglyceride has increased significantly from previous, likely in relation to his poor glycemic control recently Reinforced low cholesterol diet - goal is LDL cholesterol level of 70 mg/dl or less Continue Atorvastatin 80 mg QD Will have him recheck his labs and fasting lipids in 4 months for follow up (4) Essential hypertension: Code(s): I10 - Essential (primary) hypertension Category: Medical Plan: Reinforced low sodium diet - goal is systolic BP of 120 mm or less given his current comorbidities Continue Lisinopril 40 mg QD and Metoprolol 100 mg BID (5) Dyspepsia: Code(s): R10.13 - Epigastric pain Category: Medical Plan: Dietary restrictions reinforced Patient states that his GI symptoms have improved significantly with Rx - continue Pantoprazole 40 mg QD (6) Bilateral primary osteoarthritis of knee: Code(s): M17.0 - Bilateral primary osteoarthritis of knee Category: Medical Plan: Continue Meloxicam 15 mg QD with food PRN He is again reminded that he should take this only when he really needs it and that with his cardiac Hx, he has to use this Rx with caution (7) Obesity (BMI 30-39.9): Code(s): E66.9 - Obesity, unspecified Category: Medical Plan: Reinforced diet/exercise as tolerated/lose weight Plan Follow up in 4 months Orders: Orders Lipid Panel 4 Months E78.00 - Pure hypercholesterolemia, unspecified Comprehensive [place]. Panel Fast 4 Months E78.00 - Pure hypercholesterolemia, unspecified TSH reflex Free T4 4 Months E78.00 - Pure hypercholesterolemia, unspecified Vitamin D 25-OH Total 4 Months E55.9 - Vitamin D deficiency, unspecified Vitamin B12 and Folate 4 Months E53.8 - Deficiency of other specified B group vitamins Complete Blood Count Auto Diff 4 Months D64.9 - Anemia, unspecified UA CC w/rflx Micro + Cult 4 Months R30.0 - Dysuria Medications: Changed From atorvastatin 80 mg PO DAILY 90 tabs 0RF To atorvastatin 80 mg PO DAILY 90 tabs 3RF 90 days From metformin 1,000 mg PO BID 180 tabs 3RF To metformin 1,000 mg PO BID 180 tabs 3RF 90 days Refilled metformin 1,000 mg PO BID 180 tabs 3RF sitagliptin phosphate (Januvia) 100 mg PO DAILY 90 tabs 3RF 90 days E11.8 - Type 2 diabetes mellitus with unspecified complications
[2025-05-22 15:36] VITALS: BP 114/66; PULSE 85; O2SAT 97; BMI 27.1
== END 2025-05-22 16:15 | disposition home or self-care (01) ==
LOC: HO.HMCH 15:32
PROVIDERS: PCP Internal Medicine; Visit Provider Internal Medicine
DX: E11.65 Type 2 diabetes mellitus with hyperglycemia (principal); E66.9 Obesity, unspecified; Z68.27 Body mass index [BMI] 27.0-27.9, adult; I25.10 Atherosclerotic heart disease of native coronary artery without angina pectoris; E78.00 Pure hypercholesterolemia, unspecified; I10 Essential (primary) hypertension; R10.13 Epigastric pain; M17.0 Bilateral primary osteoarthritis of knee

== ENCOUNTER 2025-07-04 14:54 | Outpatient (AMB) | payer OTHER, SELFPAY ==
--- NOTE | 2025-07-04 15:08 | MHC.OFFVIS ---
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 Accompanied by: Self / Same As Patient Allergies No Known Allergies (No Known Allergies*) Allergy (Verified 05/22/25 16:07) Medication List - Last Reconciled 07/04/25 by Saúl Hoff MD aspirin 81 mg PO DAILY atorvastatin 80 mg PO DAILY 90 days clonidine HCl 0.1 mg PO BID PRN clopidogrel 75 mg PO DAILY isosorbide mononitrate ER 120 mg PO QAM lisinopril 40 mg PO DAILY meloxicam 15 mg PO DAILY PRN 30 days metformin 1,000 mg PO BID 90 days metoprolol tartrate 100 mg PO BID nitroglycerin 0.4 mg sublingual Q5M PRN 30 days MDD max 3 doses per episode pantoprazole 40 mg PO DAILY 90 days sitagliptin phosphate (Januvia) 100 mg PO DAILY 90 days tizanidine 4 mg PO TID PRN HPI Comments Details: Dima is here for follow-up regarding coronary artery disease. Various risk factors including diabetes, hypertension, dyslipidemia. Overall, he states he is getting chest pains almost daily. He has been like this for a while now. He feels as though the isosorbide that he takes in the morning wears off by evening and then he gets chest pains that he feels are cardiac in nature. Then he takes sublingual nitroglycerin almost every night and then that pain gets better. On the days he does not take his morning meds, he gets chest pains suggestive of angina. He has tried ranolazine in the past and that did not help and hence stopped. All other medications, he takes religiously. He states while he is actually taking every medication, he can do most things without any issues. His job is indeed quite physical and he can do that without exertional angina. [facility] Medical History Diabetes mellitus Obesity (BMI 30-39.9) Pure hypercholesterolemia Bilateral primary osteoarthritis of knee Other and unspecified hyperlipidemia Essential hypertension Type 2 diabetes mellitus with unspecified complications Atherosclerotic cardiovascular disease Surgical History History of percutaneous coronary intervention Stented coronary artery History of cardiac catheterization (~02/15/20) History of heart artery stent Family History Father No problems noted. Mother No problems noted. 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 Cognitive needs: No Hearing needs: No Vision needs: No Review of Systems Const Denies chills, Denies fatigue, Denies fever(s), Denies frequent falls, Denies weakness, Denies weight gain and Denies weight loss ENT Denies dizziness Card Denies chest pain, Denies leg edema, Denies lightheadedness, Denies palpitations, Denies dyspnea and Denies dyspnea on exertion Resp Denies cough, Denies dyspnea and Denies dyspnea on exertion GI Denies hematochezia Musc Denies abnormal gait, Denies muscle weakness, Denies numbness, Denies radiating pain into limb and Denies tingling Neuro Denies abnormal gait, Denies dizziness, Denies frequent falls, Denies numbness, Denies tingling and Denies weakness Endo Denies fatigue and Denies palpitations Physical Exam Vital Signs: Last Vital Signs Pulse 71 07/04/25 15:10 BP 100/62 07/04/25 15:10 BMI result Body Mass Index 26.8 Const General: comfortable and no acute distress Orientation/consciousness: patient oriented x3 HEENT Other: Unremarkable Head: Yes normal to inspection Neck Neck: Yes normal visual inspection Chest Chest palpation & inspection: normal inspection of the chest Resp Auscultation: clear to auscultation bilaterally Cardio Palpation: normal PMI Heart sounds: S1 normal heart sound present, S2 normal heart sound present, no gallops, no murmurs and no rubs GI Palpation (GI): Soft to palpation Back/Spine/Pelvis Other: unremarkable Skin General skin exam: no rashes or lesions noted Neuro General: patient oriented x3 Extrem General: Yes normal to inspection Psych Mental Status: mental status grossly normal Office Procedures EKG Details: EKG with underlying sinus rhythm at 71/Min; old inferoposterior infarct; normal NC and corrected QT. EKG does look different from the last one. [id number], Complete Assessment & Plan Assessment & Plan (1) Atherosclerotic cardiovascular disease: Comment: S/P PCI / stenting of LCx on 08/19/2017 Cardiac catheterization 02/15/2020 moderate in stent restenosis of OM3 , ostial 70% OM2, mid to distal LAD 50%, IFR assessments for these were not significant. Code(s): I25.10 - Atherosclerotic heart disease of [place] coronary artery without angina pectoris Category: Medical (2) Stented coronary artery: Code(s): Z95.5 - Presence of coronary angioplasty implant and graft Category: Surgical (3) Type 2 diabetes mellitus with unspecified complications: Code(s): E11.8 - Type 2 diabetes mellitus with unspecified complications Category: Medical (4) Essential hypertension: Code(s): I10 - Essential (primary) hypertension Category: Medical (5) Other and unspecified hyperlipidemia: Code(s): E78.5 - Hyperlipidemia, unspecified Category: Medical Plan Coronary anatomy- multiple coronary interventions at different times starting in 2009. Last cardiac catheterization was in 2019. He had moderate InStent restenosis in the OM3 and ostial 70% OM2; mid to distal LAD-50% but IFR assessment for all of these were not significant. As he is describing daily angina every night after the long-acting nitrates wear off, I think it is reasonable to pursue diagnostic catheterization and see if any lesions amenable for intervention. With regard to medications, he is on aspirin and Plavix. No changes with that for now. He is already on a significant dose of metoprolol at 100 mg b.i.d.. Otherwise, he is on isosorbide mononitrate 120 mg daily. He has tried ranolazine in the past with no benefit. Not much room to increase his medications. With regard to lipids, on high-dose statins. Last LDL 37 mg/dL and triglycerides 221 mg/dL. Triglycerides are higher than ideal. With regard to diabetes, he is on metformin and Januvia. Hemoglobin A1c is 8.4%, < ideal. Blood pressure is stable on lisinopril. Discussion Notes I discussed with the patient the recurrence of angina symptoms and the need for a repeat cardiac catheterization to evaluate for coronary artery disease progression. We reviewed the procedure details, including the potential for stent placement and the scheduling on a weekday to accommodate his work schedule. Patient was informed and verbally consented to the use of an ambient scribe for clinic note documentation during this visit. Orders: Orders Complete Blood Count no Diff Today I25.10 - Atherosclerotic heart disease of [place] coronary artery without angina pectoris Cardiac Cath LT w PCI Today I25.10 - Atherosclerotic heart disease of [place] coronary artery without angina pectoris Basic Metabolic Panel Today I25.10 - Atherosclerotic heart disease of [place] coronary artery without angina pectoris Prothrombin Time INR Today I25.10 - Atherosclerotic heart disease of [place] coronary artery without angina pectoris Patient Instructions: - Continue taking isosorbide and nitroglycerin as prescribed. - Schedule and prepare for the cardiac catheterization. - Monitor for any changes in symptoms and report them promptly. Coding Level of Care Code Est Pt Level 5 (69596) Complex EM visit Add On G2211 Diagnoses Atherosclerotic cardiovascular disease I25.10 Stented coronary artery Z95.5 Type 2 diabetes mellitus with unspecified complications E11.8 Essential hypertension I10 Other and unspecified hyperlipidemia E78.5 CPT Codes EKG - CPT: 42236-[id number], Complete ([id number])
[2025-07-04 15:10] VITALS: BP 100/62; PULSE 71; BMI 26.8
== END 2025-07-04 15:46 | disposition home or self-care (01) ==
LOC: HO.HCS 14:55
PROVIDERS: PCP Internal Medicine; Visit Provider Internal Medicine
DX: I11.0 Hypertensive heart disease with heart failure (principal); I25.10 Atherosclerotic heart disease of native coronary artery without angina pectoris; Z95.5 Presence of coronary angioplasty implant and graft; E11.8 Type 2 diabetes mellitus with unspecified complications; E78.5 Hyperlipidemia, unspecified; R94.31 Abnormal electrocardiogram [ECG] [EKG]
CPT/HCPCS: 93010; 99215

== ENCOUNTER → 2025-07-04 14:54 | Outpatient (BNVA) | payer OTHER, SELFPAY | PROVIDERS: PCP Internal Medicine; Visit Provider Internal Medicine | DX: I25.10 Atherosclerotic heart disease of native coronary artery without angina pectoris (principal); R94.31 Abnormal electrocardiogram [ECG] [EKG]; I10 Essential (primary) hypertension; E78.5 Hyperlipidemia, unspecified; E11.8 Type 2 diabetes mellitus with unspecified complications; Z95.5 Presence of coronary angioplasty implant and graft; Z79.84 Long term (current) use of oral hypoglycemic drugs | CPT/HCPCS: 93005; 99212 ==

== ENCOUNTER 2025-07-19 09:29 | Outpatient (REF) | payer OTHER, SELFPAY ==
[2025-07-19 10:52] LABS: Hematocrit 34.4 % (42.0-52.0); Hemoglobin 12.0 g/dl (14.0-18.0); Mean Corpuscular HGB Conc 34.9 g/dl (31.0-36.0); Mean Corpuscular Hemoglobin 32.8 pg (27.0-33.0); Mean Corpuscular Volume 94.0 fL (80.0-98.0); NRBC Abs Auto 0.000 X10*3/uL (0.0-0.012); NRBC Pct Auto 0.0 /100WBC (0.0-0.2); Platelet Count 280 X10*3/uL (160-400); Red Blood Count 3.66 X10*6/uL (4.60-5.80); White Blood Count 6.3 X10*3/uL (4.8-10.8)
[2025-07-19 10:55] LABS: INTERNATIONAL NORM RATIO 0.8 (0.9-1.1); Prothrombin Time 9.6 SEC (10.9-12.4)
[2025-07-19 11:26] LABS: Anion Gap 11 (12-20); Blood Urea Nitrogen 19 mg/dL (9-16); Calcium 9.4 mg/dL (8.4-10.2); Carbon Dioxide 27 mmol/L (22-29); Chloride 107 mmol/L (96-108); Estimated Glomerular Filt Rate > 60; Potassium 4.2 mmol/L (3.3-5.1); Sodium 141 mmol/L (135-145)
== END 2025-07-19 09:30 | disposition home or self-care (01) ==
LOC: HO.LAB 09:29
PROVIDERS: PCP Internal Medicine; Visit Provider Internal Medicine
DX: I25.10 Atherosclerotic heart disease of native coronary artery without angina pectoris (principal)
CPT/HCPCS: 36415; 80048; 85027; 85610

== ENCOUNTER → 2025-07-25 07:45 | Outpatient (REF) | payer OTHER, SELFPAY ==
--- NOTE | 2025-07-25 07:47 | CA_ITS ---
Transthoracic Echocardiogram Patient (Last, First, Middle): Dima Monsalve, Gender: M Date of : 1975 Age: 50 Procedure Date: 07/25/2025 Procedure Type: Transthoracic Echocardiogram Location: OP Height: 180.34 cm Weight: 90.72 kg BSA: 2.11 m2 Heart Rate: bpm BP: 106 / 68 mmHg Filling Separator: TO Referring MD: Saúl Hoff MD Symptoms: I25.10 - Atherosclerotic heart disease of [place] coronary artery without... Study Quality: Adequate with contrast ECG Rhythm: Sinus Conclusions: - The left ventricular systolic function is mildly decreased. The calculated ejection fraction is 51% by biplane method. - There is evidence of regional wall motion abnormalities. - No obvious valvular pathology seen on this study. Findings Procedure Information Contrast agent, definity, is being given per protocol without apparent complications. Left Ventricle Normal left ventricular cavity size. There is normal left ventricular wall thickness. The left ventricular systolic function is mildly decreased. The calculated ejection fraction is 51% by biplane method. There is evidence of regional wall motion abnormalities. Diastolic function is normal for age. Wall Motion Rest Echo Findings The inferoseptal wall, the basal inferior, mid inferior, and basal inferolateral segments are hypokinetic. The mid inferolateral segment is akinetic. Right Ventricle Normal right ventricular cavity size and systolic function. Atria The left atrium is mildly dilated. The right atrium is normal in size. Aortic Valve There is a normal trileaflet aortic valve. There is no aortic valve stenosis. There is no aortic valve regurgitation. Mitral Valve The mitral valve appears normal. There is trace mitral valve regurgitation. There is no mitral valve stenosis. Pulmonic Valve The pulmonic valve is likely normal. Tricuspid Valve There is trace tricuspid valve regurgitation. There is no evidence of pulmonary hypertension. Great Vessels The asc aorta and aortic arch are normal in size. Venous The inferior vena cava is mildly dilated and collapses less than 50% with inspiration. Pericardium/Pleural There is no evidence of pericardial effusion. Prior Study Comparison No significant change compared to prior study dated: 12/25/2020. Recommendations, Care & Conclusions No obvious valvular pathology seen on this study. Measurements 2D Linear Measurements IVSd: 0.87 0.6-0.9/0.6-1.0 cm LVIDd: 5.61 3.9-5.3/4.2-5.9 cm LVIDd Index: 2.66 2.4-3.2/2.2-3.1 cm/m2 LVIDs: 3.49 2.0-3.6 cm LVPWd: 0.71 0.7-1.1 cm LA Diam: 3.90 2.7-3.8/3.0-4.0 cm LAIDs Index: 1.85 1.5-2.3 cm/m2 LV Mass: 202.46 67-162/88-224 g LV Mass Index: 95.95 43-95/49-115 g/m2 LVOT Diam: 2.40 3.0+(-)1.3 cm 2D Systolic Function EF 4C: 53.20 >55% EF 2C: 50.30 >55% EF BiP: 51.20 >55% Mitral Valve MV Pk E: 0.69 MV PK A: 0.43 MV Decel Time: 249.00 E/A: 1.60 E'Lateral: 11.00 E'Medial: 8.05 E/E' Med: 8.60 E/E' Lat: 6.30 PHT: 73.00 MVA PHT: 3.01 Decel [place]: 2.77 Aortic Valve AoV Pk [place]: 1.52 AoV Mn [place]: 1.03 AoV VTI: 0.34 AoV Pk Grad: 9.00 Aov Mn Grad: 5.00 [place] Cont.VTI: 3.78 LVOT LVOT Pk [place]: 1.34 LVOT Mn [place]: 0.85 LVOT VTI: 0.28 LVOT Pk Grad: 7.00 LVOT Mn Grad: 3.00 LVOT Diam: 2.40 LVOT Area: 4.52 Diastolic Function MV Pk E: 0.69 MV Pk A: 0.43 E/A: 1.60 E'Medial: 8.05 E/E' Med: 8.60 E' Laterial: 11.00 E/E' Lat: 6.30 Right Ventricle TAPSE (mm): 24.00 TVS' [place]: 11.40 Tricuspid Valve TR Pk [place]: 2.18 TR Pk Grad: 19.00 RA Press: 15.00 RVSP: 34.00 Great Vessels Aorta Sinus of Valsalva: 3.21 2.0-3.[address] [place]: 2.77 1.7-3.4 cm Ao Asc: 3.40 2.1-3.4 cm Ao Arch: 3.10 Pulmonary Veins Pulm Vein S/D 0.80 Updated in Other Vendor System with Status of Final Saúl Hoff MD electronically signed on 07/25/2025 10:03:37 AM with status of Final
== END ==
LOC: HO.CARD 07:45
PROVIDERS: PCP Internal Medicine; Visit Provider Internal Medicine
DX: I25.10 Atherosclerotic heart disease of native coronary artery without angina pectoris (principal)
CPT/HCPCS: 93306; Q9957

== ENCOUNTER → 2025-07-25 07:47 | Outpatient (BNV) | payer OTHER, SELFPAY | PROVIDERS: PCP Internal Medicine; Visit Provider Internal Medicine | DX: I25.10 Atherosclerotic heart disease of native coronary artery without angina pectoris (principal) | CPT/HCPCS: 93306 ==

== ENCOUNTER → 2025-08-01 23:59 | Outpatient (BNV) | payer OTHER, SELFPAY | PROVIDERS: PCP Internal Medicine; Visit Provider Internal Medicine Cardiovascular Disease | DX: I25.118 Atherosclerotic heart disease of native coronary artery with other forms of angina pectoris (principal) | CPT/HCPCS: 92920; 92978; 93458; 99152 ==

== ENCOUNTER 2025-08-15 09:03 | Outpatient (REF) | payer OTHER, SELFPAY ==
[2025-08-15 09:15] LABS: MANUAL DIFF FLAG NO
[2025-08-15 09:50] LABS: Hematocrit 36.8 % (42.0-52.0); Hemoglobin 12.1 g/dl (14.0-18.0); Imm Gran Abs Auto 0.02 X10*3/uL (0.00-0.03); Imm Gran Pct Auto 0.3 % (0.0-0.4); Lymphocytes Absolute Auto 1.7 X10*3/uL (1.2-4.9); Mean Corpuscular HGB Conc 32.9 g/dl (31.0-36.0); Mean Corpuscular Hemoglobin 31.5 pg (27.0-33.0); Mean Corpuscular Volume 95.8 fL (80.0-98.0); NRBC Abs Auto 0.000 X10*3/uL (0.0-0.012); NRBC Pct Auto 0.0 /100WBC (0.0-0.2); Platelet Count 256 X10*3/uL (160-400); Red Blood Count 3.84 X10*6/uL (4.60-5.80); White Blood Count 6.2 X10*3/uL (4.8-10.8)
[2025-08-15 09:55] LABS: Appearance Urine Clear; Glucose Urine UA Negative (Negative); PH 5.5 (5.0-9.0); Specific Gravity - Urine >= 1.030 (1.005-1.025); UMIC TRIGGER UACC YES
[2025-08-15 10:54] LABS: Alanine Aminotransferase 16 U/L (0-40); Albumin Level 4.4 g/dL (3.5-5.0); Alkaline Phosphatase 60 U/L (39-117); Anion Gap 11 (12-20); Aspartate Amino Transferase 22 U/L (5-37); Blood Urea Nitrogen 17 mg/dL (9-16); Calcium 9.2 mg/dL (8.4-10.2); Carbon Dioxide 23 mmol/L (22-29); Chloride 113 mmol/L (96-108); Cholesterol 106 mg/dL (<200); Estimated Glomerular Filt Rate > 60; HDL Cholesterol 30 mg/dL (>40); Potassium 4.4 mmol/L (3.3-5.1); Sodium 143 mmol/L (135-145); Total Protein 6.7 g/dL (6.5-8.0); Triglycerides 80 mg/dL (<150)
[2025-08-15 11:13] LABS: Vitamin B12 184 pg/mL (200-900)
[2025-08-15 11:48] LABS: Folate 9.0 ng/mL (> or = 4.0)
== END 2025-08-15 09:04 | disposition home or self-care (01) ==
LOC: HO.LAB 09:03
PROVIDERS: PCP Internal Medicine; Visit Provider Internal Medicine
DX: I25.10 Atherosclerotic heart disease of native coronary artery without angina pectoris (principal); E11.8 Type 2 diabetes mellitus with unspecified complications; I10 Essential (primary) hypertension; E78.5 Hyperlipidemia, unspecified; F17.210 Nicotine dependence, cigarettes, uncomplicated; E55.9 Vitamin D deficiency, unspecified; E78.00 Pure hypercholesterolemia, unspecified; E53.8 Deficiency of other specified B group vitamins; D64.9 Anemia, unspecified; Z95.5 Presence of coronary angioplasty implant and graft
CPT/HCPCS: 36415; 80053; 80061; 81001; 82306; 82607; 82746; 84443; 85025; 99212

== ENCOUNTER 2025-08-15 13:23 | Outpatient (AMB) | payer OTHER, SELFPAY ==
--- NOTE | 2025-08-15 14:12 | A.OFFVIS_ITS ---
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: No Accompanied by: Spouse Allergies No Known Allergies (No Known Allergies*) Allergy (Verified 05/22/25 16:07) Medication List - Last Reconciled 08/15/25 by Saúl Hoff MD aspirin 81 mg PO DAILY atorvastatin 80 mg PO DAILY 90 days clonidine HCl 0.1 mg PO BID PRN clopidogrel 75 mg PO DAILY isosorbide mononitrate ER 120 mg PO QAM lisinopril 40 mg PO DAILY meloxicam 15 mg PO DAILY PRN 30 days metformin 1,000 mg PO BID 90 days metoprolol tartrate 100 mg PO BID nitroglycerin 0.4 mg sublingual Q5M PRN 30 days MDD max 3 doses per episode pantoprazole 40 mg PO DAILY 90 days sitagliptin phosphate (Januvia) 100 mg PO DAILY 90 days tizanidine 4 mg PO TID PRN HPI Comments Details: Dima is here for follow-up regarding coronary artery disease. Various risk factors including diabetes, hypertension, dyslipidemia. During the reason visit, he was complaining of chest pain almost daily. He was feeling as if the isosorbide that he was taking in the morning wears off by evening. He was taking nitroglycerin sublingually almost every night. He had tried ranolazine in the past but it did not give him any pain relief and hence stopped taking it. Since last visit, he underwent cardiac catheterization in the marginal stent. He states he is much better. No further angina. [facility] Medical History Diabetes mellitus Obesity (BMI 30-39.9) Pure hypercholesterolemia Bilateral primary osteoarthritis of knee Other and unspecified hyperlipidemia Essential hypertension Type 2 diabetes mellitus with unspecified complications Atherosclerotic cardiovascular disease Surgical History S/P cardiac cath History of percutaneous coronary intervention Stented coronary artery History of cardiac catheterization (~02/15/20) History of heart artery stent Family History Father No problems noted. Mother No problems noted. 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 Cognitive needs: No Hearing needs: No Vision needs: No Review of Systems Const Denies chills, Denies fatigue, Denies fever(s), Denies frequent falls, Denies we akness, Denies weight gain and Denies weight loss ENT Denies dizziness Card Denies chest pain, Denies leg edema, Denies lightheadedness, Denies palpit ations, Denies dyspnea and Denies dyspnea on exertion Resp Denies cough, Denies dyspnea and Denies dyspnea on exertion GI Denies hematochezia Musc Denies abnormal gait, Denies muscle weakness, Denies numbness, Denies radiating pain into limb and Denies tingling Neuro Denies abnormal gait, Denies dizziness, Denies frequent falls, Denies numbness, Denies tingling and Denies weakness Endo Denies fatigue and Denies palpitations Physical Exam Vital Signs: Last Vital Signs Pulse 63 08/15/25 14:13 BP 130/70 08/15/25 14:13 BMI result Body Mass Index 27.2 Const General: comfortable and no acute distress Orientation/consciousness: patient oriented x3 HEENT Other: Unremarkable Head: Yes normal to inspection Neck Neck: Yes normal visual inspection Chest Chest palpation & inspection: normal inspection of the chest Resp Auscultation: clear to auscultation bilaterally Cardio Palpation: normal PMI Heart sounds: S1 normal heart sound present, S2 normal heart sound present, no gallops, no murmurs and no rubs GI Palpation (GI): Soft to palpation Back/Spine/Pelvis Other: unremarkable Skin General skin exam: no rashes or lesions noted Neuro General: patient oriented x3 Extrem General: Yes normal to inspection Psych Mental Status: mental status grossly normal Assessment & Plan Assessment & Plan (1) Atherosclerotic cardiovascular disease: Code(s): I25.10 - Atherosclerotic heart disease of [place] coronary artery without angina pectoris Category: Medical (2) Stented coronary artery: Code(s): Z95.5 - Presence of coronary angioplasty implant and graft Category: Surgical (3) Type 2 diabetes mellitus with unspecified complications: Code(s): E11.8 - Type 2 diabetes mellitus with unspecified complications Category: Medical (4) Essential hypertension: Code(s): I10 - Essential (primary) hypertension Category: Medical (5) Other and unspecified hyperlipidemia: Code(s): E78.5 - Hyperlipidemia, unspecified Category: Medical (6) Smoking: Code(s): F17.200 - Nicotine dependence, unspecified, uncomplicated Category: Social Hx Plan Most recent cardiac catheterization data reviewed. Status post PCI to severe InStent restenosis in the OM 2. He also has OM1 ostial stenosis but jailed by circumflex stent. Recommended medical management and possible PCI in the future. In the echocardiogram, LVEF is 51%. Inferior, inferoseptal and inferolateral wall motion abnormalities. Overall, continue aspirin/Plavix. He remains on beta-blockers, long-acting nitrates and then maybe continue without changes. Sublingual nitroglycerin as needed. Continue high-dose statins. LDL 60 mg/dL and triglycerides 80 mg/dL. With regard to diabetes, he is on metformin and Januvia. Hemoglobin A1c is 8.4%. Blood pressure stable on lisinopril. Needs to stop smoking. 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 At least pursue regular physical activity. Discussion Notes During the visit, we discussed the patient's coronary artery disease and the importance of monitoring for any recurrence of chest pain. We also talked about the patient's tobacco use disorder and the need to quit smoking. Follow-up care was planned for six months to reassess the patient's condition and adjust treatment as necessary. Patient was informed and verbally consented to the use of an ambient scribe for clinic note documentation during this visit. Patient Instructions: - Monitor for any recurrence of chest pain and contact your healthcare provider if symptoms return. - Follow up with your primary care provider to explore smoking cessation strategies. - Schedule a follow-up appointment in six months to reassess your condition. Coding Level of Care Code Est Pt Level 4 (76037) Complex EM visit Add On G2211 Diagnoses Atherosclerotic cardiovascular disease I25.10 Stented coronary artery Z95.5 Type 2 diabetes mellitus with unspecified complications E11.8 Essential hypertension I10 Other and unspecified hyperlipidemia E78.5 Smoking F17.200
[2025-08-15 14:13] VITALS: BP 130/70; PULSE 63; BMI 27.2
== END 2025-08-15 14:42 | disposition home or self-care (01) ==
LOC: HO.HCS 13:24
PROVIDERS: PCP Internal Medicine; Visit Provider Internal Medicine
DX: I25.10 Atherosclerotic heart disease of native coronary artery without angina pectoris (principal); Z95.5 Presence of coronary angioplasty implant and graft; E11.8 Type 2 diabetes mellitus with unspecified complications; I10 Essential (primary) hypertension; E78.5 Hyperlipidemia, unspecified; F17.200 Nicotine dependence, unspecified, uncomplicated
CPT/HCPCS: 99214

== ENCOUNTER 2025-09-22 15:31 | Outpatient (AMB) | payer OTHER, SELFPAY ==
[2025-09-22 15:42] VITALS: BP 108/70; PULSE 76; O2SAT 94; BMI 28.4
--- NOTE | 2025-09-22 15:42 | MHC.PC.OV ---
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 Accompanied by: Self / Same As Patient Allergies No Known Allergies (No Known Allergies*) Allergy (Verified 09/22/25 15:50) Medication List - Last Reconciled 09/22/25 by Alin Sandy MD aspirin 81 mg PO DAILY atorvastatin 80 mg PO DAILY 90 days clonidine HCl 0.1 mg PO BID PRN clopidogrel 75 mg PO DAILY isosorbide mononitrate ER 120 mg PO QAM lisinopril 40 mg PO DAILY meloxicam 15 mg PO DAILY PRN 30 days metformin 1,000 mg PO BID 90 days metoprolol tartrate 100 mg PO BID nitroglycerin 0.4 mg sublingual Q5M PRN 30 days MDD max 3 doses per episode pantoprazole 40 mg PO DAILY 90 days sitagliptin phosphate (Januvia) 100 mg PO DAILY 90 days tizanidine 4 mg PO TID PRN Tobacco use date assessed: 09/22/25 Dental Screening Dental Screen Date: 09/22/25 Did you have a dental visit in the last 12 months?: No Did you have a dental problem in the last 6 months where you did not have access to dental care?: No Was dental information given to patient?: No HPI CAD, DM, hyperlipidemia HPI Details Patient comes in today for his follow-up visit States that he feels okay He denies any headaches or dizziness Denies any chest pains, no shortness of breath No nausea/vomiting, no abdominal pain No change in bowel habits noted States that he would like to get Rx for Chantix to help him quit smoking He had his follow-up labs done last month - to discuss his results [facility] Medical History (Updated 09/23/25 @ 14:00 by Alin Sandy MD) Smoker Vitamin B12 deficiency Vitamin D deficiency Diabetes mellitus Obesity (BMI 30-39.9) Pure hypercholesterolemia Bilateral primary osteoarthritis of knee Other and unspecified hyperlipidemia Essential hypertension Type 2 diabetes mellitus with unspecified complications Atherosclerotic cardiovascular disease Surgical History S/P cardiac cath History of percutaneous coronary intervention Stented coronary artery History of cardiac catheterization (~02/15/20) History of heart artery stent Family History Father No problems noted. Mother No problems noted. 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 1. Little interest or pleasure in doing things: not at all 2. Feeling down, depressed, or hopeless: not at all 3. Trouble falling or staying asleep, or sleeping too much: not at all 4. Feeling tired or having little energy: not at all 5. Poor appetite or overeating: not at all 6. Feeling bad about yourself - or that you are a failure or have let yourself or your family down: not at all 7. Trouble concentrating on things, such as reading the newspaper or watching television: not at all 8. Moving or speaking so slowly that other people could have noticed. Or the opposite - being so fidgety or restless that you have been moving around a lot more than usual: not at all 9. Thoughts that you would be better off or of hurting yourself in some way: not at all Total score: 0 Depression Screening Interpretation: Negative Depression Screening Done: Yes 55885 - PHQ-9 Billing: Yes Source: Developed by Drs. Wade Perla, Hafsa Oquendo, Mau Barlow and colleagues, with an educational nate from [employer]. Thrive Questionnaire Date Thrive assessed: 09/22/25 I am a: Patient What is your living situation today?: I have a steady place to live Within the past 12 months, did the food you bought not last and you didn't have the money to get more?: Never true Within the past 12 months, did you worry whether your food would run out before you got money to buy more?: I choose not to answer this question Do you have trouble paying for medicines?: I choose not to answer this question Do you have trouble getting transportation to medical appointments?: No Do you have trouble paying your heating and electricity bill?: I choose not to answer this question Do you have trouble taking care of your child, family member or friend?: No Do you have trouble with day-to-day activities such as bathing, preparing meals, shopping, managing finances, etc.?: No Are you currently unemployed and looking for a job?: No Are you interested in more education?: No Please select the resources that you would like help with: None Currently or been in a relationship where the following occur: I choose not to answer THRIVE Score: 0 AUDIT C Alcohol Use Questionnaire (AUDIT-C) 1. How often do you have a drink containing alcohol?: Never 3. How often do you have six or more drinks on one occasion?: Never Total Score: 0 Score Reviewed/Action Taken: Yes MARTINA-7 AMB Questionnaire MARTINA-7 Date MARTINA - 7 assessed: 09/22/25 Feeling nervous, anxious, or on edge: 0 = Not at all Not being able to stop or control worryin = Not at all Worrying too much about different things: 0 = Not at all Trouble relaxin = Not at all Being so restless that it is hard to sit still: 0 = Not at all Becoming easily annoyed or irritable: 0 = Not at all Feeling afraid as if something awful might happen: 0 = Not at all Total MARTINA-7 score (0-4 normal; 5-9 mild; 10-14 moderate; 15-21 severe): 0 Source: Developed by Drs. Wade Perla, Hafsa Oquendo, Mau Barlow and colleagues, with an educational naet from [employer]. Review of Systems Const Denies chills, Denies fatigue, Denies fever(s) and Denies headache(s) ENT Denies dysphagia, Denies dizziness, Denies otalgia, Denies headache(s), Denies neck pain, Denies odynophagia and Denies sore throat Card Denies chest pain, Denies rapid heart rate, Denies palpitations and Denies dyspnea Resp Denies chest congestion, Denies cough and Denies dyspnea GI Denies abdominal pain, Denies constipation, Denies dysphagia, Denies heartburn, Denies diarrhea, Denies nausea, Denies odynophagia and Denies vomiting Denies difficulty urinating, Denies dysuria and Denies urinary frequency Musc Denies back pain, Denies arthralgias and Denies neck pain Skin/Breast Denies rash Neuro Denies dizziness, Denies headache(s) and Denies paresthesias Endo Denies fatigue and Denies palpitations Physical exam (Primary Care) Vital Signs: Last Vital Signs Pulse 76 09/22/25 15:42 BP 108/70 09/22/25 15:42 Pulse Ox 94 09/22/25 15:42 Oxygen Delivery Method Room Air 09/22/25 15:42 BMI result Body Mass Index 28.4 Tobacco/Smoking Status: Tobacco use Status Tobacco use date assessed 09/22/25 09/22/25 15:46 Patient Tobacco Use Status Former Tobacco user 09/22/25 15:46 Tobacco use type Cigarette 09/22/25 15:46 e-Cigarette/Vaping Use Never Used 09/22/25 15:46 PHQ-9: PHQ-9 Score PHQ-9: Total score 0 09/23/25 13:51 Depression Screening Interpretation: Negative Thrive Assessment: Date of Thrive Assessment Date Thrive assessed 09/22/25 09/22/25 15:46 Currently or been in a relationship where the following occur: I choose not to answer Const General: no acute distress and alert HENMT Ears: TM's normal bilaterally and EAC's normal Throat: Yes posterior oropharynx normal and Yes tonsils normal (no TP congestion) Neck Neck: Yes supple and No lymphadenopathy Thyroid: Thyroid normal Resp Auscultation: clear to auscultation bilaterally, no rales and no wheezes Cardio Rate: regular rate Rhythm: regular rhythm Heart sounds: no murmurs GI Palpation (GI): Soft to palpation and nontender Auscultation: normal bowel sounds General: Yes no CVA tenderness Back/Spine/Pelvis Back: no CVA tenderness Thoracic/Lumbar Spine: No lumbar spinal tenderness Skin Rashes: no rashes Extrem General: Yes no clubbing, cyanosis or edema Results AMB Hemoglobin A1c AMB Hemoglobin A1c 6.7 % Last Edit by LUPIS Wu on 09/22/25 16:28 Results Reviewed Results Reviewed: Laboratory Last Values Hgb A1c (Clinic) 6.7 % (4.0-6.0) H 09/22/25 16:24 Laboratory Tests 08/15/25 08/15/25 09:10 09:14 WBC 6.2 Hgb 12.1 L Hct 36.8 L Plt Count 256 Sodium 143 Potassium 4.4 Creatinine 0.90 Estimated GFR > 60 Fasting Glucose 96 Calcium 9.2 AST 22 ALT 16 Triglycerides 80 Cholesterol 106 LDL Cholesterol, Calc 60 HDL Cholesterol 30 L Vitamin B12 184 L 25-OH Vitamin D Total 26.3 L TSH 1.67 Ur Specific [place] >= 1.030 H Urine Protein Trace Urine Glucose (UA) Negative Urine Blood Negative Urine Nitrite Negative Ur Leukocyte Esterase Trace H Coding Level of Care Code Est Pt Level 4 (56047) Diagnoses Atherosclerotic cardiovascular disease I25.10 Type 2 diabetes mellitus with hyperglycemia, without long-term current use of insulin E11.65 Diabetes mellitus complication status: with hyperglycemia 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 Diabetes mellitus type: type 2 Pure hypercholesterolemia E78.00 Essential hypertension I10 Dyspepsia R10.13 Bilateral primary osteoarthritis of knee M17.0 Vitamin D deficiency E55.9 Vitamin B12 deficiency E53.8 Smoker F17.200 Obesity (BMI 30-39.9) E66.9 Additional Codes PHQ-9 - 80445 - PHQ-9 Billing: Yes ([id number]) Assessment & Plan Assessment & Plan (1) Atherosclerotic cardiovascular disease: Comment: S/P PCI in 2016 and 2019 Code(s): I25.10 - Atherosclerotic heart disease of [place] coronary artery without angina pectoris Category: Medical Plan: Follow up coronary angiography done in 2020 showed no hemodynamically significant lesions in the coronaries He was recommended lifelong low dose Aspirin therapy, Clopidogrel (x 12 months post-PCI but cardiology decided to keep him on Plavix considering the extent of his CAD), aggressive risk factor reduction, smoking cessation and continuing medical management Continue Aspirin 81 mg QD and Clopidogrel 75 mg QD Continue Metoprolol 100 mg BID and Isosorbide Mononitrate ER 120 mg QD and NTG 0.4 mg SL PRN for chest pains He was also supposed to be on Ranolazine ER 500 mg BID but patient self-discontinued his Ranolazine a couple of years ago - states that he has not had any problems / symptoms since coming off Ranexa Follow up with cardiology as scheduled (2) Diabetes mellitus: Code(s): E11.9 - Type 2 diabetes mellitus without complications Category: Medical Qualifiers: Diabetes mellitus complication status: with hyperglycemia 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 Diabetes mellitus type: type 2 Qualified Code(s): E11.65 - Type 2 diabetes mellitus with hyperglycemia Plan: His in-office HgbA1c today is at 6.7% (HgbA1c was previously at 8.4% back in May 2025) - goal is at least < 7.0% Reinforced diabetic diet Continue Metformin 1000 mg BID and Januvia 100 mg QD (3) Pure hypercholesterolemia: Code(s): E78.00 - Pure hypercholesterolemia, unspecified Category: Medical Plan: Results of his labs done last month reviewed and discussed with patient - his cholesterol levels are at goal and his serum triglyceride level has improved significantly from previous Reinforced low cholesterol diet Continue Atorvastatin 80 mg QD Will have him recheck his labs and fasting lipids in 4 months for follow up (4) Essential hypertension: Code(s): I10 - Essential (primary) hypertension Category: Medical Plan: Reinforced low sodium diet - goal is systolic BP of 120 mm or less given his current comorbidities Continue Lisinopril 40 mg QD and Metoprolol 100 mg BID (5) Dyspepsia: Code(s): R10.13 - Epigastric pain Category: Medical Plan: Dietary restrictions reinforced Patient states that his GI symptoms have improved significantly with Rx - continue Pantoprazole 40 mg QD (6) Bilateral primary osteoarthritis of knee: Code(s): M17.0 - Bilateral primary osteoarthritis of knee Category: Medical Plan: Continue Meloxicam 15 mg QD with food PRN He is again reminded that he should take this only when he really needs it and that with his cardiac Hx, he has to use this Rx with caution (7) Vitamin D deficiency: Code(s): E55.9 - Vitamin D deficiency, unspecified Category: Medical Plan: He is advised that his Vitamin D level was low on his recent labs and he needs to start back on Vitamin D supplements Will start him again on Vitamin D3 2000 units QD (8) Vitamin B12 deficiency: Code(s): E53.8 - Deficiency of other specified B group vitamins Category: Medical Plan: His Vitamin B12 level was also low on his labs done last month Patient reports that he has been experiencing some tingling sensation in his hands and fingers recently and thought that he may be developing carpal tunnel syndrome Will start him on Vitamin B12 1000 mcg QD (9) Smoker: Code(s): F17.200 - Nicotine dependence, unspecified, uncomplicated Category: Social Hx Plan: Patient is counseled again on complete smoking cessation Per request, will start him again on Varenicline and instructed him on the proper way to go about taking this (10) Obesity (BMI 30-39.9): Code(s): E66.9 - Obesity, unspecified Category: Medical Plan: Reinforced diet/exercise as tolerated/lose weight Plan Follow up in 4 months Orders: Orders Comprehensive [place]. Panel Fast 4 Months E78.00 - Pure hypercholesterolemia, unspecified Lipid Panel 4 Months E78.00 - Pure hypercholesterolemia, unspecified Microalbumin, Random (w Creat) 4 Months E11.9 - Type 2 diabetes mellitus without complications UA CC w/rflx Micro + Cult 4 Months R30.0 - Dysuria TSH reflex Free T4 4 Months E78.00 - Pure hypercholesterolemia, unspecified Hemoglobin A1c 4 Months E11.9 - Type 2 diabetes mellitus without complications Complete Blood Count Auto Diff 4 Months D64.9 - Anemia, unspecified Vitamin B12 and Folate 4 Months E53.8 - Deficiency of other specified B group vitamins Vitamin D 25-OH Total 4 Months E55.9 - Vitamin D deficiency, unspecified AMB Hemoglobin A1c 09/22/25 Z13.9 - Encounter for screening, unspecified Medications: New varenicline tartrate administer on days 1, 2, and 3 of therapy 0.5 mg PO DAILY 3 tabs 0RF 3 days cyanocobalamin (vitamin B-12) 1,000 mcg PO DAILY 90 tabs 3RF 90 days varenicline tartrate administer on days 4, 5, and 6 of therapy 0.5 mg PO BID 6 tabs 0RF 3 days varenicline tartrate 1 mg PO BID 56 tabs 3RF 28 days cholecalciferol (vitamin D3) 50 mcg PO DAILY 90 caps 3RF 90 days E55.9 - Vitamin D deficiency, unspecified
== END 2025-09-22 16:15 | disposition home or self-care (01) ==
LOC: HO.HMCH 15:32
PROVIDERS: PCP Internal Medicine; Visit Provider Internal Medicine
DX: Z13.9 Encounter for screening, unspecified (principal)

== ENCOUNTER → 2025-09-22 15:31 | Outpatient (BNVA) | payer OTHER, SELFPAY | PROVIDERS: PCP Internal Medicine; Visit Provider Internal Medicine | DX: I25.10 Atherosclerotic heart disease of native coronary artery without angina pectoris (principal); E78.00 Pure hypercholesterolemia, unspecified; I10 Essential (primary) hypertension; R10.13 Epigastric pain; M17.0 Bilateral primary osteoarthritis of knee; E66.9 Obesity, unspecified; E55.9 Vitamin D deficiency, unspecified; E53.8 Deficiency of other specified B group vitamins; F17.200 Nicotine dependence, unspecified, uncomplicated; Z13.39 Encounter for screening examination for other mental health and behavioral disorders | CPT/HCPCS: 83036; 96127; 99212 ==